=== PATIENT | female | born 1965 | race American Indian/Alaskan Native ===

== ENCOUNTER 2016-07-25 23:28 | Inpatient (IN) | payer MEDICARE, MEDICAID ==
[2016-07-25 23:32] VITALS: BMI 27.9
--- NOTE | 2016-07-25 23:49 | ED PDOC ---
Arrival/HPI - General Time Seen by Provider: 07/25/16 23:35 Historian: Patient - History of Present Illness Narrative History of Present Illness (Text): 07/25/16 23:53 Shadi Anderson is a 51 year old female, with a history of paraplegia, GERD, cellulitis, anemia and depression, presents to the emergency department from [facility] complaining of right flank pain. Patient was sent to ED for further evaluation after ultrasound showed renal calculi. Denies fever, chills, chest pain, SOB, nausea, vomiting, diarrhea, or any other complaints at this time. Time/Duration: < week Symptom Onset: Sudden Symptom Course: Unchanged Severity Level: Mild Activities at Onset: Light Past Medical History - Provider Review Nursing Documentation Reviewed: Yes Family/Social History - Physician Review Nursing Documentation Reviewed: Yes Family/Social History: No Known Family HX Allergies/Home Meds Allergies/Adverse Reactions: Allergies No Known Allergies Allergy (Verified 07/26/16 11:05) Home Medications: Home Meds Medication Instructions Recorded Confirmed Acetaminophen/Oxycodone Hydr 1 tab PO Q6H 07/26/16 07/26/16 [Percocet 10/325 mg Tab] Amitriptyline [Elavil] 1 tab PO HS 07/26/16 07/26/16 Baclofen [Lioresal] 1 tab PO Q12H 07/26/16 07/26/16 Cyclobenzaprine [Flexeril] 1 tab PO DAILY 07/26/16 07/26/16 DULoxetine [Cymbalta] 1 cap PO BID 07/26/16 07/26/16 Divalproex [Depakote Sprinkles] 1 tab PO BID 07/26/16 07/26/16 Docusate [Colace] 2 cap PO HS 07/26/16 07/26/16 Enoxaparin [Lovenox] 30 mg SC DAILY 07/26/16 07/26/16 Fentanyl [Duragesic Patch] 75 mcg TD Q72H 07/26/16 07/26/16 Ferrous Sulfate [Feosol] 1 tab PO DAILY 07/26/16 07/26/16 Furosemide [Lasix] 1 tab PO DAILY 07/26/16 07/26/16 Lactulose [Constulose] 30 ml PO BID 07/26/16 07/26/16 Multivitamin [One Daily] 1 tab PO DAILY 07/26/16 07/26/16 Omeprazole [Omeprazole] 1 cap PO DAILY 07/26/16 07/26/16 Potassium Chloride [Klor-Con M10] 1 tab PO DAILY 07/26/16 07/26/16 Sennosides [Senna] 2 tab PO HS 07/26/16 07/26/16 Review of Systems - Physician Review All systems were reviewed & negative as marked: Yes - Review of Systems Constitutional: Normal. absent: Fatigue, Fevers Cardiovascular: Normal. absent: Chest Pain Gastrointestinal: Normal. absent: Abdominal Pain, Diarrhea, Nausea, Vomiting Musculoskeletal: Back Pain (right flank pain ) Neurological: Normal. absent: Headache, Dizziness Psychiatric: Normal Physical Exam Vital Signs Reviewed: Yes Vital Signs Temp Pulse Resp BP Pulse Ox 07/26/16 05:33 92 H 18 104/68 96 07/26/16 03:30 81 19 89/57 L 96 07/25/16 23:41 98.8 F 103 H 18 115/69 100 Temperature: Afebrile Blood Pressure: Normal Pulse: Regular Respiratory Rate: Normal Appearance: Positive for: Non-Toxic Pain Distress: None Mental Status: Positive for: Alert and Oriented X 3 - Systems Exam Head: Present: Atraumatic, Normocephalic Pupils: Present: PERRL Extroacular Muscles: Present: EOMI Conjunctiva: Present: Normal Respiratory/Chest: Present: Clear to Auscultation, Good Air Exchange. No: Respiratory Distress, Accessory Muscle Use Cardiovascular: Present: Regular Rate and Rhythm, Normal S1, S2. No: Murmurs Abdomen: Present: Normal Bowel Sounds. No: Tenderness, Distention, Peritoneal Signs Back: Present: CVA Tenderness (right CVA tenderness ) Neurological: Present: GCS=15, CN II-XII Intact, Speech Normal Skin: Present: Warm, Dry, Normal Color. No: Rashes Psychiatric: Present: Alert, Oriented x 3, Normal Insight, Normal Concentration Medical Decision Making ED Course and Treatment: 07/25/16 23:57 Impression: A 51 year old female who presents to the ed for evaluation of right flank pain. Plan: -- CT abdomen pelvis -- labs -- Cefepime -- Morphine -- Blood culture -- Urine culture -- Urinalysis Progress Notes: 07/26/16 03:56 CT abdomen pelvis results reviewed: IMPRESSION: - Extracaval positioning of portions of the IVC filter. Several of the struts of the filter extend beyond the confines of the IVC lumen, some located within the duodenum. No evidence of associated IVC rupture of duodenal perforation. - Moderate to severe right hydroureteronephrosis, as well as right perinephric and periureteric stranding, cause not identified, with a right ureteral stent in place. Findings could be secondary to a right-sided urinary tract infection, stent dysfunction, or a recently passed stone. - Findings suspicious for stercoral proctitis. 07/26/16 04:44 Case discussed with who accepts patient under hospitalist service. - Lab Interpretations Microbiology Results: Microbiology Results 07/26/16 02:20 Urine,Clean Catch Urine Culture - Preliminary Gram Negative [facility] Lab Results: 07/26/16 00:15 07/26/16 00:15 Lab Results 07/26/16 02:20: Urine Color Yellow, Urine Appearance Turbid, Urine pH 6.5, Ur Specific Ambler 1.025, Urine Protein 100 H, Urine Glucose (UA) Negative, Urine Ketones Negative, Urine Blood Large H, Urine Nitrate Positive H, Urine Bilirubin Negative, Urine Urobilinogen 0.2, Ur Leukocyte Esterase Moderate H, Urine RBC 1 - 3, Urine WBC 20 - 25, Ur Epithelial Cells 0 - 2, Urine Bacteria Many 07/26/16 00:15: WBC 8.4, RBC 4.12, Hgb 12.0, Hct 36.1, MCV 87.6, MCH 29.1, MCHC 33.2, RDW 13.3, Plt Count 477 H, MPV 8.4, Gran % 58.9, Lymph % (Auto) 26.0, [place] % (Auto) 13.9 H, Eos % (Auto) 0.8 L, Baso % (Auto) 0.4, Gran # 4.92, Lymph # 2.2, [place] # 1.2 H, Eos # 0.1, Baso # 0.03, Sodium 136, Potassium 4.0, Chloride 99, Carbon Dioxide 27, Anion Gap 14, BUN 23 H, Creatinine 1.3, Est GFR ( Amer) 52, Est GFR (Non-Af Amer) 43, Random Glucose 101, Calcium 9.5, Total Bilirubin 0.6, AST 24, ALT 8, Alkaline Phosphatase 156 H, Total Protein 9.9 H, Albumin 3.7, Globulin 6.3, Albumin/Globulin Ratio 0.6 L I have reviewed the lab results: Yes - RAD Interpretation Narrative RAD Interpretations (Text): EXAM: CT Abdomen and Pelvis Without Intravenous Contrast. FINDINGS: LIMITATIONS: Exam is limited by artifact related to the patient's body habitus and streak artifact from the patient's left arm. LOWER THORAX: Chronic-appearing bronchiectasis and consolidation in the left lung base. ABDOMEN: LIVER: No acute abnormality of the liver identified. GALLBLADDER AND BILE DUCTS: No CT evidence of acute cholecystitis. No evidence of significant biliary ductal dilatation. PANCREAS: No CT evidence of acute pancreatitis. SPLEEN: No acute abnormality of the spleen identified. ADRENALS: No acute abnormality of the adrenal glands identified. KIDNEYS AND URETERS: Right ureteral stent in place. This does not appear to be malpositioned. Its proximal tip is located in the renal pelvis, and its distal tip is located in the bladder. There is moderate to severe right hydroureteronephrosis. The hydroureter does involve the distal right ureter. Right renal enlargement and diffuse right perinephric and periureteric stranding are also noted. No causative obstructing stones are seen. Large 2 cm stone in the right renal pelvis, abutting the proximal tip of the stent. Multiple additional tiny, nonobstructing right renal stones. Marked scarring of the left kidney. STOMACH AND BOWEL: Rectum is stool-filled and is mildly and dilated. Its wall is thickened. There is infiltration of the perirectal fat. There is a small amount of nearby free fluid, in the presacral region. Findings are suspicious for stercoral proctitis. Retained stool also seen throughout the remainder of the colon. No definite transition point seen in the colon. No acute abnormality of the stomach identified. No evidence of small bowel obstruction. APPENDIX: Appendix is seen, and is within normal limits in appearance. PELVIS: BLADDER: See above. No large bladder calculi visualized. REPRODUCTIVE:No acute abnormality of the reproductive organs is seen. No acute abnormality of the uterus identified. No evidence of large adnexal masses. ABDOMEN and PELVIS: INTRAPERITONEAL SPACE: No evidence of free air or significant free fluid. BONES/JOINTS: Post operative changes involving the lower sacrum. It appears that the lower sacrum has been surgically resected. Metallic hardware in the left hip. There is associated streak artifact, which obscures adjacent structures. Bony structures appear demineralized. Mild chronic compression fracture is noted at L1. SOFT TISSUES: Diffuse muscular atrophy is noted in the pelvis. VASCULATURE: IVC filter in place. This is partially located outside of the IVC lumen. Several of the struts of the filter are at located outside of the IVC lumen, some extending into the duodenum. There is no evidence of associated IVC rupture or duodenal perforation. No retroperitoneal hemorrhage or free air. LYMPH NODES: No evidence of diffuse lymphadenopathy. IMPRESSION: - Extracaval positioning of portions of the IVC filter. Several of the struts of the filter extend beyond the confines of the IVC lumen, some located within the duodenum. No evidence of associated IVC rupture of duodenal perforation. - Moderate to severe right hydroureteronephrosis, as well as right perinephric and periureteric stranding, cause not identified, with a right ureteral stent in place. Findings could be secondary to a right-sided urinary tract infection, stent dysfunction, or a recently passed stone. - Findings suspicious for stercoral proctitis. - See above for remaining findings. Radiology Orders: 07/25/16 23:49 ABD & PELVIS W/O PO OR IV CONT [CT] Stat Quality Technician [employer]: Radiologist - Medication Orders Current Medication Orders: Acetaminophen (Tylenol 325mg Tab) 650 mg PO Q4H PRN PRN Reason: Fever >100.4 F Last Admin: 07/27/16 18:08 Dose: 650 MG MAR Pain/Vitals Document 07/27/16 18:08 [facility] (Rec: 07/27/16 18:08 [facility] [id number]) Pain Reassessment Is This A Pain ReAssessment? No Presence of Pain Presence of Pain Yes Pain Scale Used Pain Scale Used Numeric Vitals Temperature (97.6 F-99.6 F) 99.4 F Temperature Source Oral Amitriptyline HCl (Elavil) 25 mg PO HS [facility] Last Admin: 07/26/16 21:58 Dose: 25 MG Ascorbic Acid (Vitamin C 500 Mg Tab) 500 mg PO DAILY EMILY Baclofen (Lioresal) 10 mg PO Q12H [facility] Last Admin: 07/27/16 08:00 Dose: Not Given Non-Admin Reason: NPO Cyclobenzaprine HCl (Flexeril) 10 mg PO DAILY [facility] Last Admin: 07/26/16 09:02 Dose: 10 MG Divalproex Sodium (Depakote Sprinkles) 125 mg PO BID [facility] PRN Reason: Protocol Last Admin: 07/27/16 18:08 Dose: 125 MG Behavioural Document 07/27/16 18:08 CLR (Rec: 07/27/16 18:08 CLR [id number]) Maintenance Maintenance Dose Yes Docusate Sodium (Colace) 100 mg PO HS [facility] Last Admin: 07/26/16 21:56 Dose: 100 MG Duloxetine HCl (Cymbalta) 60 mg PO BID [facility] Last Admin: 07/27/16 18:08 Dose: 60 MG Enoxaparin Sodium (Lovenox) 30 mg SC DAILY [facility] PRN Reason: Protocol Last Admin: 07/26/16 09:02 Dose: 30 MG Subcutaneous Administrations Document 07/26/16 09:02 RV (Rec: 07/26/16 09:02 RV [id number]) Injection Site MAR Injection Site Right Abdomen Charges for Administration # of Subcutaneous Administrations 1 Fentanyl (Duragesic) 1 patch TD Q72H [facility] Last Admin: 07/26/16 09:00 Dose: 1 PATCH Ferrous Sulfate (Feosol) 324 mg PO DAILY [facility] Last Admin: 07/26/16 09:02 Dose: 324 MG Furosemide (Lasix) 20 mg PO DAILY [facility] Last Admin: 07/26/16 09:02 Dose: 20 MG MAR Blood Pressure Document 07/26/16 09:02 RV (Rec: 07/26/16 09:02 RV [id number]) Blood Pressure Blood Pressure (100/60-150/90) 110/66 Cefepime HCl (Maxipime 1gm) 100 mls @ 100 mls/hr IVPB Q24H [facility] PRN Reason: Protocol Last Admin: 07/26/16 11:54 Dose: 100 MLS/HR eMAR Start Stop Document 07/26/16 11:54 RV (Rec: 07/26/16 11:55 RV [id number]) Intravenous Solution Start Date 07/26/16 Start Time 11:54 End Date 07/26/16 End time 12:54 Total Infusion Time 60 Sodium Chloride (Sodium Chloride 0.9%) 1,000 mls @ 100 mls/hr IV .Q10H [facility] Last Admin: 07/27/16 18:15 Dose: 100 MLS/HR eMAR Start Stop Document 03/15/17 18:15 CLR (Rec: 07/27/16 18:15 CLR [id number]) Intravenous Solution Start Date 07/27/16 Start Time 18:15 Lactulose (Enulose) 20 gm PO BID [facility] Last Admin: 07/27/16 18:11 Dose: Not Given Non-Admin Reason: Patient Refused Multivitamins (Thera Tab) 1 tab PO DAILY [facility] Last Admin: 07/26/16 09:02 Dose: 1 TAB Oxycodone/Acetaminophen (Percocet 10/325 Mg Tab) 1 tab PO Q6H [facility] Last Admin: 07/27/16 12:45 Dose: Pantoprazole Sodium (Protonix Ec Tab) 40 mg PO 0630 [facility] Last Admin: 07/27/16 05:53 Dose: Not Given Non-Admin Reason: NPO Potassium Chloride (Klor-Con 10) 10 meq PO DAILY [facility] Last Admin: 07/26/16 09:02 Dose: 10 MEQ Sennosides (Senokot Tab) 8.6 mg PO HS [facility] Last Admin: 07/26/16 21:57 Dose: 8.6 MG Sennosides (Senokot Tab) 8.6 mg PO DAILY [facility] Last Admin: 07/26/16 09:01 Dose: 8.6 MG Zinc Sulfate (Zinc Sulfate 220 Mg Cap) 220 mg PO DAILY [facility] Discontinued Medications Ceftriaxone Sodium (Rocephin) Confirm Administered Dose 1 gm .ROUTE .STK-MED ONE Stop: 07/27/16 09:01 Last Admin: 07/27/16 09:02 Dose: 1 gm Comments: ORM Administered Route: IVPB Fentanyl (Fentanyl) Confirm Administered Dose 100 mcg .ROUTE .STK-MED ONE Stop: 07/27/16 08:52 Fentanyl (Fentanyl) 25 mcg IV Q5M PRN PRN Reason: Pain, moderate (4-7) Stop: 07/27/16 09:47 Glycopyrrolate (Robinul) Confirm Administered Dose 0.2 mg .ROUTE .STK-MED ONE Stop: 07/27/16 08:54 Cefepime HCl (Maxipime 1gm) 100 mls @ 100 mls/hr IVPB STAT STA PRN Reason: Protocol Stop: 07/26/16 04:29 Last Admin: 07/26/16 03:57 Dose: 100 MLS/HR eMAR Start Stop Document 07/26/16 03:57 MR (Rec: 07/26/16 03:58 [id number]) Intravenous Solution Start Date 07/26/16 Start Time 03:57 End Date 07/26/16 End time 04:57 Total Infusion Time 60 Cefepime HCl (Maxipime 1gm) 100 mls @ 100 mls/hr IVPB Q24H EMILY PRN Reason: Protocol Last Admin: 07/26/16 06:33 Dose: Ceftriaxone Sodium (Rocephin 1 Gram Ivpb) 100 mls @ 100 mls/hr IVPB DAILY EMILY PRN Reason: Protocol Lactated Ringer's (Lactated Ringer's) 1,000 mls @ 75 mls/hr IV .[id number] EMILY Stop: 07/27/16 11:46 Last Admin: 07/27/16 12:45 Dose: Amikacin Sulfate 500 mg/ (Dextrose) 102 mls @ 204 mls/hr IVPB ONCE ONE PRN Reason: Protocol Stop: 07/27/16 18:59 Influenza Virus Vaccine (Fluvirin) 45 mcg IM .ONCE ONE Stop: 07/26/16 12:26 Iohexol (Omnipaque 240 (50 Ml)) Confirm Administered Dose 50 ml .ROUTE .STK-MED ONE Stop: 07/27/16 08:20 Last Admin: 07/27/16 09:18 Dose: 20 ML Lidocaine HCl (Xylocaine 2% (Uro-Jet)) Confirm Administered Dose 1 ea .ROUTE .STK-MED ONE Stop: 07/27/16 08:20 Metronidazole (Flagyl) 500 mg PO Q8 EMILY PRN Reason: Protocol Last Admin: 07/27/16 05:52 Dose: Not Given Non-Admin Reason: NPO Midazolam HCl (Versed Inj) Confirm Administered Dose 2 mg .ROUTE .STK-MED ONE Stop: 07/27/16 08:52 Morphine Sulfate (Morphine) 2 mg IVP STAT STA Stop: 07/26/16 01:45 Last Admin: 07/26/16 04:01 Dose: Not Given Non-Admin Reason: Patient Refused Non-Formulary Medication (Omeprazole [Omeprazole]) 1 cap PO DAILY EMILY Pneumococcal Polyvalent Vaccine (Pneumovax 23 Vaccine) 0.5 ml IM .ONCE ONE Stop: 07/26/16 12:26 - Scribe Statement The provider has reviewed the documentation as recorded by the Scribe Rich Noehuraman Provider Attestation: All medical record entries made by the Johnny were at my direction and personally dictated by me. I have reviewed the chart and agree that the record accurately reflects my personal performance of the history, physical exam, medical decision making, and the department course for this patient. I have also personally directed, reviewed, and agree with the discharge instructions and disposition. Disposition/Present on Arrival - Present on Arrival Any Indicators Present on Arrival: No - Disposition Have Diagnosis and Disposition been Completed?: Yes Diagnosis: Urolithiasis, Retained ureteral stent Disposition: HOSPITALIZED Disposition Time: 04:45 Condition: FAIR
[2016-07-26 00:24] LABS: ADD MANUAL DIFF? NO
[2016-07-26 00:27] LABS: BASO # 0.03 K/mm3 (0.0-2.0); BASO % 0.4 % (0.0-3.0); EOS # 0.1 (0.0-0.7); EOS % 0.8 % (1.5-5.0); GRAN # 4.92 (1.4-6.5); GRAN % 58.9 % (50.0-68.0); HEMATOCRIT 36.1 % (36.0-48.0); LYMPH # 2.2 (1.2-3.4); MEAN CELL VOLUME 87.6 fL (80.0-105.0); MEAN CORPUSCULAR HEMOGLOBIN 29.1 pg (25.0-35.0); MEAN CORPUSCULAR HGB CONC 33.2 g/dl (31.0-37.0); MEAN PLATELET VOLUME 8.4 fl (7.0-11.0); MONO # 1.2 (0.1-0.6); MONO % 13.9 % (1.0-6.0); PLATELET COUNT 477 10^3/uL (120.0-450.0); RED CELL DISTRIBUTION WIDTH 13.3 % (11.5-14.5); WHITE BLOOD COUNT 8.4 10^3/ul (4.5-11.0)
[2016-07-26 00:44] LABS: ALB/GLOB RATIO 0.6 (1.1-1.8); BILIRUBIN,TOTAL 0.6 mg/dL (0.2-1.3); CALCIUM 9.5 mg/dL (8.4-10.5); TOTAL PROTEIN 9.9 g/dL (5.8-8.3)
[2016-07-26] MEDS ORDERED: Morphine 2 mg/ml ISec IVP STA (01:44)
[2016-07-26 02:50] LABS: PH,URINE 6.5 (4.7-8.0); URINE BILIRUBIN NEGATIVE (NEGATIVE); URINE BLOOD LARGE (NEGATIVE); URINE COLOR YELLOW (YELLOW); URINE GLUCOSE (UA) NEGATIVE (NEGATIVE); URINE KETONE NEGATIVE (NEGATIVE); URINE LEUKOCYTE ESTERASE MODERATE Leu/uL (NEGATIVE); URINE PROTEIN 100 mg/dL (<30 mg/dL); URINE UROBILINOGEN 0.2 E.U./dL (<1 E.U./dL)
[2016-07-26 02:51] LABS: URINE APPEARANCE TURBID (CLEAR)
[2016-07-26 02:56] LABS: URINE BACTERIA MANY (NEG); URINE EPITHELIAL CELLS 0 - 2 /hpf (0-5); URINE WBC 20 - 25 /hpf (0-6)
[2016-07-26] MEDS ORDERED: Cefepime 1gm in NS 100ml 100 ML IVPB STA (03:30)
--- NOTE | 2016-07-26 03:47 | CT ---
EXAM: CT Abdomen and Pelvis Without Intravenous Contrast. CLINICAL HISTORY: 51 years old, female; Pain; Abdominal pain; Flank; Right; Additional info: Rt flank pain TECHNIQUE: Axial computed tomography images of the abdomen and pelvis without intravenous contrast. This CT exam was performed using one or more of the following dose reduction techniques: automated exposure control, adjustment of the mA and/or kV according to patient size, and/or use of iterative reconstruction technique. Coronal and sagittal reformatted images were created and reviewed. EXAM DATE/TIME: 07/25/2016 11:49 PM COMPARISON: No relevant prior studies available. FINDINGS: LIMITATIONS: Exam is limited by artifact related to the patient's body habitus and streak artifact from the patient's left arm. LOWER THORAX: Chronic-appearing bronchiectasis and consolidation in the left lung base. ABDOMEN: LIVER: No acute abnormality of the liver identified. GALLBLADDER AND BILE DUCTS: No CT evidence of acute cholecystitis. No evidence of significant biliary ductal dilatation. PANCREAS: No CT evidence of acute pancreatitis. SPLEEN: No acute abnormality of the spleen identified. ADRENALS: No acute abnormality of the adrenal glands identified. KIDNEYS AND URETERS: Right ureteral stent in place. This does not appear to be malpositioned. Its proximal tip is located in the renal pelvis, and its distal tip is located in the bladder. There is moderate to severe right hydroureteronephrosis. The hydroureter does involve the distal right ureter. Right renal enlargement and diffuse right perinephric and periureteric stranding are also noted. No causative obstructing stones are seen. Large 2 cm stone in the right renal pelvis, abutting the proximal tip of the stent. Multiple additional tiny, nonobstructing right renal stones. Marked scarring of the left kidney. STOMACH AND BOWEL: Rectum is stool-filled and is mildly and dilated. Its wall is thickened. There is infiltration of the perirectal fat. There is a small amount of nearby free fluid, in the presacral region. Findings are suspicious for stercoral proctitis. Retained stool also seen throughout the remainder of the colon. No definite transition point seen in the colon. No acute abnormality of the stomach identified. No evidence of small bowel obstruction. APPENDIX: Appendix is seen, and is within normal limits in appearance. PELVIS: BLADDER: See above. No large bladder calculi visualized. REPRODUCTIVE:No acute abnormality of the reproductive organs is seen. No acute abnormality of the uterus identified. No evidence of large adnexal masses. ABDOMEN and PELVIS: INTRAPERITONEAL SPACE: No evidence of free air or significant free fluid. BONES/JOINTS: Post operative changes involving the lower sacrum. It appears that the lower sacrum has been surgically resected. Metallic hardware in the left hip. There is associated streak artifact, which obscures adjacent structures. Bony structures appear demineralized. Mild chronic compression fracture is noted at L1. SOFT TISSUES: Diffuse muscular atrophy is noted in the pelvis. VASCULATURE: IVC filter in place. This is partially located outside of the IVC lumen. Several of the struts of the filter are at located outside of the IVC lumen, some extending into the duodenum. There is no evidence of associated IVC rupture or duodenal perforation. No retroperitoneal hemorrhage or free air. LYMPH NODES: No evidence of diffuse lymphadenopathy. IMPRESSION: - Extracaval positioning of portions of the IVC filter. Several of the struts of the filter extend beyond the confines of the IVC lumen, some located within the duodenum. No evidence of associated IVC rupture of duodenal perforation. - Moderate to severe right hydroureteronephrosis, as well as right perinephric and periureteric stranding, cause not identified, with a right ureteral stent in place. Findings could be secondary to a right-sided urinary tract infection, stent dysfunction, or a recently passed stone. - Findings suspicious for stercoral proctitis. - See above for remaining findings.
[2016-07-26] MEDS ORDERED: Cefepime 1gm in NS 100ml 100 ML IVPB SCH (06:15)
--- NOTE | 2016-07-26 07:47 | CP.PCM.HP ---
Addendum entered and electronically signed by Judson Qureshi DO 07/26/16 17: 19: Plan for cystoscopy with stent placement rai morning likely [address] Mark Vasquez. Pt NPO past midnight. Original Note: History of Present Illness - History of Present Illness History of Present Illness: CC: Right Flank pain HPI: This is a 51 yo AA F with PMH of paraplegia 2/[address] [place] [address] (2007), nephrolithiasis s/p right ureter stent (2013), GERD, cellulitis , anemia, and depression who presents with complaint of right flank pain. Per patient, she has had intermittent right flank pain for 3 years, which is when she was first diagnosed with renal stones. She had an ultrasound done of her kidneys at her residential, and was found to have a new 2cm stone and dilated right kidney, so she was sent to the hospital. She was also found to have urine suspicious for possible UTI on arrival. She reports intermittent fevers over the last 3-4 weeks, without acute worsening today. Denies shortness of breath, chest pain, nausea/emesis, or abdominal pain. PMH: As above PSH: Unspecified spinal surgery, left hip repair SHx: denies tobacco, alcohol, illicits/IVDA PMD: Dr. Helton Present on Admission - Present on Admission Any Indicators Present on Admission: No History of DVT/PE: No History of Uncontrolled Diabetes: No Urinary Catheter: No Review of Systems - Constitutional Constitutional: Fever (intermittent), Malaise. absent: Chills, Excessive Sweating - EENT Eyes: absent: Blurred Vision, Change in Vision, Loss of Peripheral Vision, Spots in Vision, Loss of Vision Ears: absent: Disequilibrium, Dizziness Nose/Mouth/Throat: absent: Dysphagia, Sore Throat - Cardiovascular Cardiovascular: absent: Chest Pain, Dyspnea, Pain Radiating to Arm/Neck/Jaw, Lightheadedness, Syncope - Respiratory Respiratory: absent: Cough, Dyspnea - Gastrointestinal Gastrointestinal: Constipation (chronic, due to paraplegic injury and chronic pain medications, on regular bowel regimen at residential). absent: Abdominal Pain, Diarrhea, Nausea, Vomiting - Genitourinary Genitourinary: Flank Pain (R flank, no radiation elsewhere), Hx Renal/Bladder Calculi (hx of renal calculi, right ureter stent placed 3 years prior). absent : Hematuria - Musculoskeletal Musculoskeletal: Numbness (paraplegic 2/2 fall from 3rd story in 2007). absent : Joint Swelling, Radiating Pain into Limb - Integumentary Integumentary: absent: Pruritus, Rash - Neurological Neurological: absent: Disequilibrium, Dizziness, Loss of Vision, Syncope, Vertigo, Other Visual Disturbances - Psychiatric Psychiatric: Anxiety, Depression - Endocrine Endocrine: absent: Fatigue, Palpitations Past Patient History - Infectious Disease Hx of Infectious Diseases: None - Past Social History Smoking Status: Unknown If Ever Smoked - HEMATOLOGICAL/ONCOLOGICAL Hx Anemia: Yes - INTEGUMENTARY Hx Cellulitis: Yes - MUSCULOSKELETAL/RHEUMATOLOGICAL Hx Osteomyelitis: Yes Other/Comment: Paraplegia - GASTROINTESTINAL Hx Gastroesophageal Reflux: Yes - PSYCHIATRIC Hx Depression: Yes Hx Substance Use: No - SURGICAL HISTORY Hx Surgeries: No Other/Comment: Back surgery - ANESTHESIA Hx Anesthesia: Yes Hx Anesthesia Reactions: No Hx Malignant Hyperthermia: No Meds Allergies/Adverse Reactions: Allergies Allergy/AdvReac Type Severity Reaction Status Date / Time No Known Allergies Allergy Verified 07/25/16 23:32 Physical Exam - Constitutional Appears: Non-toxic, No Acute Distress, Chronically Ill - Head Exam Head Exam: ATRAUMATIC, NORMAL INSPECTION, NORMOCEPHALIC - Eye Exam Eye Exam: EOMI, Normal appearance, PERRL. absent: Conjunctival injection, Scleral icterus Pupil Exam: PERRL. absent: Irregular, Unequal - ENT Exam ENT Exam: Mucous Membranes Moist. absent: Mucous Membranes Dry - Neck Exam Neck exam: Negative for: Lymphadenopathy, Tenderness, Thyromegaly - Respiratory Exam Respiratory Exam: Clear to Auscultation Bilateral, NORMAL BREATHING PATTERN. absent: Decreased Breath Sounds, Rales, Rhonchi, Wheezes - Cardiovascular Exam Cardiovascular Exam: REGULAR RHYTHM, RRR, +S1, +S2. absent: Bradycardia, Tachycardia, Irregular Rhythm, +S4 - GI/Abdominal Exam GI & Abdominal Exam: Normal Bowel Sounds, Soft. absent: Diminished Bowel Sounds , Firm, Hyperactive Bowel Sounds, Hypoactive Bowel Sounds, Rigid, Tenderness ( patient points to right flank area of tenderness, but no visible reaction on deep palpation of spot) - Extremities Exam Extremities exam: Negative for: pedal edema Additional comments: No lower extremity sensation - Neurological Exam Neurological exam: Alert - Psychiatric Exam Psychiatric exam: Anxious, Flat Affect - Skin Skin Exam: Dry, Intact, Normal Color, Warm Results - Vital Signs Recent Vital Signs: Last Vital Signs Temp 98.8 F 07/25/16 23:41 Pulse 92 H 07/26/16 05:33 Resp 18 07/26/16 05:33 BP 104/68 07/26/16 05:33 Pulse Ox 96 07/26/16 05:33 - Labs Result Diagrams: 07/26/16 00:15 07/26/16 00:15 Assessment & Plan - Assessment and Plan (Free Text) Assessment: This is a 51 yo AA F with PMH of paraplegia 2/2 fall from 3rd story [facility] ( 2007), nephrolithiasis s/p right ureter stent (2013), GERD, cellulitis, anemia, and depression who presents with complaint of right flank pain and recently discovered nephrolithiasis on US. She is being treated for nephrolithiasis and suspected UTI +/- possible pyelo. Plan: 1) Nephrolithiasis -Right 2 cm stone discovered on US at [facility], patient complains of persistent sent of mass on the right side -Prior R ureteral stent placed (3 years ago) -Urology consulted, appreciate any recs -Pain control with home percocet, IV fluids 2) Hydronephrosis -Pyelo vs 2/2 Nephrolithiasis -UA suspicious for UTI with Moderate leuk esterase, positive nitrates, and 20- 35 WBCs; UTI with hydronephrosis may be indicative of pyelo, will cover empirically with Cefepime and Flagyl -2cm nephrolithiasis on imaging, unlikely to spontaneously pass, may be causing hydronephrosis 2/2 obstructive process -Cr 1.2, no prior charting to establish baseline -Urology consulted, appreciate any recs 3) Hx Depression -continue home antidepressants 4) Hx GERD -Protonix 40mg daily 5) Paraplegia -longstanding, 2/2 fall from 3rd story in 2007 Dispo: Inpatient admission to Med/Surg for nephrolithiasis +/- possible pyelo, pending input from Urology FEN: Heart-healthy diet, IV NS 100cc/hr Access: Peripheral IV Consults: Urology Ppx: Protonix covers GI, Lovenox covers for DVT/PE Patient seen, discussed, and reviewed with attending, Dr. Bagley. - Date & Time Date: 07/26/16 Time: 07:30 Decision To Admit - Pt Status Changed To: Hospital Disposition Of: Inpatient Admission - Admit Certification Admit to Inpatient:: After my assessment, the patient will require hospitalization for at least two midnights. This is because of the severity of symptoms shown, intensity of services needed, and/or the medical risk in this patient being treated as an outpatient. - . Bed Request Type: Med/Surg
[2016-07-26] MEDS: Oxycodone/Acetaminophen 10/325 mg Tab PO SCH ×3 (08:57→21:57)
[2016-07-26] MEDS: Divalproex 125 mg EC Sprinkle Cap PO SCH ×3 (09:01→18:55)
[2016-07-26] MEDS: Multivitamin Therapeutic Tab PO SCH (09:02)
[2016-07-26] MEDS: Potassium Chloride 10 mEq ER Tab PO SCH (09:02)
[2016-07-26] MEDS: Enoxaparin 30 mg Syringe SC SCH (09:02)
[2016-07-26 09:24] LABS: ADD MANUAL DIFF? NO
[2016-07-26 09:29] LABS: BASO # 0.03 K/mm3 (0.0-2.0); BASO % 0.4 % (0.0-3.0); EOS # 0.1 (0.0-0.7); GRAN # 3.61 (1.4-6.5); GRAN % 53.7 % (50.0-68.0); HEMATOCRIT 33.3 % (36.0-48.0); LYMPH % 29.7 % (22.0-35.0); MEAN CELL VOLUME 87.2 fL (80.0-105.0); MEAN CORPUSCULAR HEMOGLOBIN 29.1 pg (25.0-35.0); MEAN CORPUSCULAR HGB CONC 33.3 g/dl (31.0-37.0); MEAN PLATELET VOLUME 8.3 fl (7.0-11.0); MONO % 15.2 % (1.0-6.0); PLATELET COUNT 468 10^3/uL (120.0-450.0); RED CELL DISTRIBUTION WIDTH 13.3 % (11.5-14.5); WHITE BLOOD COUNT 6.7 10^3/ul (4.5-11.0)
[2016-07-26 10:00] LABS: ALB/GLOB RATIO 0.6 (1.1-1.8); BILIRUBIN,TOTAL 0.7 mg/dL (0.2-1.3); CALCIUM 9.5 mg/dL (8.4-10.5); MAGNESIUM 2.1 mg/dL (1.7-2.2); PHOSPHOROUS 3.6 mg/dL (2.5-4.5); POTASSIUM 4.3 mmol/L (3.6-5.0); TOTAL PROTEIN 9.5 g/dL (5.8-8.3)
[2016-07-26] MEDS ORDERED: Divalproex 125 mg EC Sprinkle Cap PO SCH (10:00)
[2016-07-26] MEDS ORDERED: Non Formulary Medication (Omeprazole [Omeprazole] 1 CAP) PO SCH (10:00)
[2016-07-26] MEDS ORDERED: cefTRIAXone 1 gm 100 ML IVPB SCH (10:00)
[2016-07-26] MEDS: Cefepime 1gm in NS 100ml 100 ML IVPB SCH (11:54)
[2016-07-26] MEDS: Sodium Chloride 0.9% 1,000 ML IV SCH (11:55)
[2016-07-26] MEDS ORDERED: Influenza Vaccine 45 MCG/0.5 ml IM ONE (12:25)
[2016-07-26] MEDS ORDERED: Pneumococcal 23-Valent Vaccine IM ONE (12:25)
--- NOTE | 2016-07-26 13:19 | RAD ---
HISTORY: cough COMPARISON: No prior. TECHNIQUE: Chest PA and lateral FINDINGS: LUNGS: No active pulmonary disease. PLEURA: No significant pleural effusion identified. No pneumothorax apparent. CARDIOVASCULAR: Normal. OSSEOUS STRUCTURES: No significant abnormalities. Dennis rods identified, of limited assessment/no evidence of hardware failure. VISUALIZED UPPER ABDOMEN: Normal. OTHER FINDINGS: None. IMPRESSION: No active disease.
--- NOTE | 2016-07-26 13:48 | PCM.URO ---
Urology Progress Note - Objective Lab Results Last 24 Hours: Laboratory Results - last 24 hr 07/26/16 09:22 WBC 6.7 D RBC 3.82 Hgb 11.1 L Hct 33.3 L MCV 87.2 MCH 29.1 MCHC 33.3 RDW 13.3 Plt Count 468 H MPV 8.3 Gran % 53.7 Lymph % (Auto) 29.7 Dickenson % (Auto) 15.2 H Eos % (Auto) 1.0 L Baso % (Auto) 0.4 Gran # 3.61 Lymph # 2.0 Dickenson # 1.0 H Eos # 0.1 Baso # 0.03 Sodium 141 Potassium 4.3 Chloride 108 H Carbon Dioxide 25 Anion Gap 12 BUN 19 Creatinine 1.2 Est GFR ( Amer) 58 Est GFR (Non-Af Amer) 48 Random Glucose 85 Calcium 9.5 Phosphorus 3.6 Magnesium 2.1 Total Bilirubin 0.7 AST 23 ALT 6 L Alkaline Phosphatase 119 Total Protein 9.5 H Albumin 3.6 Globulin 5.9 Albumin/Globulin Ratio 0.6 L Intake & Output: Intake & Output 07/25/16 07/26/16 07/26/16 18:59 06:59 18:59 Weight 173 lb Other: Voiding Method Incontinent Vital Signs: Vital Signs - 24 hr 07/26/16 07/26/16 07/26/16 05:33 06:00 09:02 Temperature 97.8 F Pulse Rate 92 H 78 Respiratory 18 17 Rate Blood Pressure 104/68 110/67 110/66 O2 Sat by Pulse 96 98 Oximetry 07/26/16 11:43 Temperature 97.8 F Pulse Rate 78 Respiratory 17 Rate Blood Pressure 110/66 O2 Sat by Pulse Oximetry
--- NOTE | 2016-07-27 01:05 | CP.PCM.PCO ---
Physician Communication Note - Physician Communication Note Physician Communication Note: chart reviewed. Pyelonephritis? on Cefepime/ Flagyl. Consult done tomorrow
[2016-07-27] MEDS: Oxycodone/Acetaminophen 10/325 mg Tab PO SCH ×5 (05:52→20:53)
[2016-07-27] MEDS: Sodium Chloride 0.9% 1,000 ML IV SCH ×2 (05:53→18:15)
[2016-07-27] MEDS ORDERED: Pantoprazole 40 mg EC Tab PO SCH (06:30)
[2016-07-27] MEDS ORDERED: Iohexol 240 (50 ml) ONE (08:19)
[2016-07-27] MEDS ORDERED: Lidocaine 2% Jelly (Uro-Jet) ONE (08:19)
[2016-07-27 08:27] LABS: ADD MANUAL DIFF? NO
[2016-07-27 08:40] LABS: BASO # 0.03 K/mm3 (0.0-2.0); BASO % 0.5 % (0.0-3.0); EOS # 0.1 (0.0-0.7); EOS % 2.3 % (1.5-5.0); GRAN # 3.21 (1.4-6.5); GRAN % 56.3 % (50.0-68.0); HEMATOCRIT 33.2 % (36.0-48.0); LYMPH # 1.6 (1.2-3.4); LYMPH % 27.4 % (22.0-35.0); MEAN CELL VOLUME 87.6 fL (80.0-105.0); MEAN CORPUSCULAR HGB CONC 31.9 g/dl (31.0-37.0); MEAN PLATELET VOLUME 8.5 fl (7.0-11.0); MONO # 0.8 (0.1-0.6); MONO % 13.5 % (1.0-6.0); PLATELET COUNT 496 10^3/uL (120.0-450.0); RED CELL DISTRIBUTION WIDTH 13.5 % (11.5-14.5); WHITE BLOOD COUNT 5.7 10^3/ul (4.5-11.0)
[2016-07-27 08:43] LABS: ALB/GLOB RATIO 0.6 (1.1-1.8); ALKALINE PHOSPHATASE 106 U/L (38-133); ALT/SGPT 7 U/L (7-56); AST/SGOT 28 U/L (15-39); BILIRUBIN,TOTAL 0.6 mg/dL (0.2-1.3); BLOOD UREA NITROGEN 14 mg/dL (7-21); CALCIUM 9.1 mg/dL (8.4-10.5); CARBON DIOXIDE 26 mmol/L (21-33); CHLORIDE 107 mmol/L (98-107); GFR AFRICAN-AMERICAN > 60; GLUCOSE,RANDOM 95 mg/dL (70-110); PHOSPHOROUS 3.3 mg/dL (2.5-4.5); POTASSIUM 4.1 mmol/L (3.6-5.0); SODIUM 140 mmol/L (132-148); TOTAL PROTEIN 9.1 g/dL (5.8-8.3)
[2016-07-27] MEDS ORDERED: Midazolam 2 MG/2 ML VIAL ONE (08:51)
[2016-07-27] MEDS ORDERED: cefTRIAXone (Rocephin) 1 gm Inj ONE (09:00)
--- NOTE | 2016-07-27 09:34 | CP.PCM.PCO ---
Physician Communication Note - Physician Communication Note Physician Communication Note: pt was in OR for stent placement, will f/u tomorrow, no acute issues, no SI
[2016-07-27] MEDS ORDERED: Lactated Ringer's 1,000 ML IV SCH (09:45)
--- NOTE | 2016-07-27 11:31 | RAD ---
PROCEDURE: Retrograde pyelogram HISTORY: R/O STONES COMPARISON: TECHNIQUE: Fluoroscopy was provided in the operating room. Twelve images were submitted FINDINGS: The initial images show a ureteral stent in place and a large stone in the renal pelvis. Subsequent images show placement of a wire alongside the stent extending into the renal pelvis. There is placement of a 2nd stent. IMPRESSION: As above
--- NOTE | 2016-07-27 12:53 | CP.PCM.PN ---
<Judson Qureshi - Last Filed: 07/27/16 14:43> Subjective - Date & Time of Evaluation Date of Evaluation: 07/27/16 Time of Evaluation: 11:42 - Subjective Subjective: Pt seen and examined. Pt is day 0 s/p right ureteral stent placement. Pt reports fevers, chills, and pain in her right flank. Pt also reports nausea. Pt denies chest pain and shortness of breath. Objective - Vital Signs/Intake and Output Vital Signs (last 24 hours): Temp Pulse Resp BP Pulse Ox 101.6 F H 60 20 145/87 100 07/27/16 12:37 07/27/16 10:15 07/27/16 10:15 07/27/16 10:15 07/27/16 10:15 Intake and Output: 07/27/16 07/27/16 06:59 18:59 Intake Total 780 0 Output Total 1 Balance 779 0 - Medications Medications: Current Medications Acetaminophen (Tylenol 325mg Tab) 650 mg PO Q4H PRN PRN Reason: Fever >100.4 F Last Admin: 07/27/16 12:37 Dose: 650 mg Amitriptyline HCl (Elavil) 25 mg PO HS [facility] Last Admin: 07/26/16 21:58 Dose: 25 mg Ascorbic Acid (Vitamin C 500 Mg Tab) 500 mg PO DAILY [facility] Baclofen (Lioresal) 10 mg PO Q12H [facility] Last Admin: 07/27/16 08:00 Dose: Not Given Cyclobenzaprine HCl (Flexeril) 10 mg PO DAILY [facility] Last Admin: 07/26/16 09:02 Dose: 10 mg Divalproex Sodium (Depakote Sprinkles) 125 mg PO BID [facility] PRN Reason: Protocol Last Admin: 07/26/16 18:55 Dose: Not Given Docusate Sodium (Colace) 100 mg PO HS [facility] Last Admin: 07/26/16 21:56 Dose: 100 mg Duloxetine HCl (Cymbalta) 60 mg PO BID [facility] Last Admin: 07/26/16 18:49 Dose: 60 mg Enoxaparin Sodium (Lovenox) 30 mg SC DAILY [facility] PRN Reason: Protocol Last Admin: 07/26/16 09:02 Dose: 30 mg Fentanyl (Duragesic) 1 patch TD Q72H [facility] Last Admin: 07/26/16 09:00 Dose: 1 patch Ferrous Sulfate (Feosol) 324 mg PO DAILY [facility] Last Admin: 07/26/16 09:02 Dose: 324 mg Furosemide (Lasix) 20 mg PO DAILY [facility] Last Admin: 07/26/16 09:02 Dose: 20 mg Cefepime HCl (Maxipime 1gm) 100 mls @ 100 mls/hr IVPB Q24H [facility] PRN Reason: Protocol Last Admin: 07/26/16 11:54 Dose: 100 mls/hr Sodium Chloride (Sodium Chloride 0.9%) 1,000 mls @ 100 mls/hr IV .Q10H [facility] Last Admin: 07/27/16 05:53 Dose: 100 mls/hr Lactulose (Enulose) 20 gm PO BID [facility] Last Admin: 07/26/16 18:49 Dose: 20 gm Metronidazole (Flagyl) 500 mg PO Q8 [facility] PRN Reason: Protocol Last Admin: 07/27/16 05:52 Dose: Not Given Multivitamins (Thera Tab) 1 tab PO DAILY [facility] Last Admin: 07/26/16 09:02 Dose: 1 tab Oxycodone/Acetaminophen (Percocet 10/325 Mg Tab) 1 tab PO Q6H [facility] Last Admin: 07/27/16 12:37 Dose: 1 tab Pantoprazole Sodium (Protonix Ec Tab) 40 mg PO 0630 [facility] Last Admin: 07/27/16 05:53 Dose: Not Given Potassium Chloride (Klor-Con 10) 10 meq PO DAILY [facility] Last Admin: 07/26/16 09:02 Dose: 10 meq Sennosides (Senokot Tab) 8.6 mg PO HS [facility] Last Admin: 07/26/16 21:57 Dose: 8.6 mg Sennosides (Senokot Tab) 8.6 mg PO DAILY [facility] Last Admin: 07/26/16 09:01 Dose: 8.6 mg Zinc Sulfate (Zinc Sulfate 220 Mg Cap) 220 mg PO DAILY [facility] - Labs Labs: 07/27/16 08:00 07/27/16 08:00 - Constitutional Appears: No Acute Distress - Head Exam Head Exam: ATRAUMATIC, NORMOCEPHALIC - Eye Exam Eye Exam: EOMI, PERRL - ENT Exam ENT Exam: Mucous Membranes Moist. absent: Mucous Membranes Dry - Respiratory Exam Respiratory Exam: Clear to Ausculation Bilateral - Cardiovascular Exam Cardiovascular Exam: +S1, +S2. absent: Gallop, Rubs, Murmur - GI/Abdominal Exam GI & Abdominal Exam: Soft, Tenderness, Normal Bowel Sounds. absent: Distended, Rigid - Extremities Exam Extremities Exam: absent: Full ROM - Back Exam Additional comments: sacral ulcer - Neurological Exam Neurological Exam: Alert, Awake, Oriented x3 - Psychiatric Exam Psychiatric exam: Normal Mood - Skin Skin Exam: Normal Color, Warm Assessment and Plan - Assessment and Plan (Free Text) Assessment: Pyelonephritis and hydronephrosis secondary to nephrolithiasis: Abd/Pelvis CT - moderate to severe right hydrouteronephrosis, right perinephric and periuretic stranding; large 2 cm stone in right renal pelvis; stercoral proctitis (please see full report) CXR - no active disease Urology, Dr. Vasquez, consulted. Help appreciated Day 0 s/p cystoscopy and right ureteral stent placement and with Dr. Vasquez T - 101.6 post-op Urine cultures positive for gram negative rods Infectious Disease, Dr. Pepper, consulted. Help appreciated. Maxipime 1 gm q24h Flagyl discontinued Follow up urology and ID recommendations Tylenol prn for fever Percocet prn for pain NS 100 cc/hr Sacral Ulcer: Wound care consulted, help appreciated. Zinc Vitamin C Hx of Depression: Elavil 25 mg po hs Cymbalta 60 mg po bid Back pain/Muscle Spasms: Flexeril 10 mg po qd Fentanyl patch Baclofen Peripheral Edema Lasix 20 mgpo qd Anemia Feosol Prophylactic Measures: GI: protonix 40 mg po qd DVT: Lovenox 30 mg sc qd Sennosides, colace for constipation Multivitamins Lactulose <Franklin Uriostegui B - Last Filed: 07/27/16 18:07> Objective - Vital Signs/Intake and Output Vital Signs (last 24 hours): Temp Pulse Resp BP Pulse Ox 98.9 F 60 20 145/87 100 07/27/16 15:30 07/27/16 10:15 07/27/16 10:15 07/27/16 10:15 07/27/16 10:15 Intake and Output: 07/27/16 07/27/16 06:59 18:59 Intake Total 780 480 Output Total 1 Balance 779 480 - Medications Medications: Current Medications Acetaminophen (Tylenol 325mg Tab) 650 mg PO Q4H PRN PRN Reason: Fever >100.4 F Last Admin: 07/27/16 12:37 Dose: 650 mg Amitriptyline HCl (Elavil) 25 mg PO HS [facility] Last Admin: 07/26/16 21:58 Dose: 25 mg Ascorbic Acid (Vitamin C 500 Mg Tab) 500 mg PO DAILY [facility] Baclofen (Lioresal) 10 mg PO Q12H [facility] Last Admin: 07/27/16 08:00 Dose: Not Given Cyclobenzaprine HCl (Flexeril) 10 mg PO DAILY [facility] Last Admin: 07/26/16 09:02 Dose: 10 mg Divalproex Sodium (Depakote Sprinkles) 125 mg PO BID [facility] PRN Reason: Protocol Last Admin: 07/26/16 18:55 Dose: Not Given Docusate Sodium (Colace) 100 mg PO HS [facility] Last Admin: 07/26/16 21:56 Dose: 100 mg Duloxetine HCl (Cymbalta) 60 mg PO BID [facility] Last Admin: 07/26/16 18:49 Dose: 60 mg Enoxaparin Sodium (Lovenox) 30 mg SC DAILY [facility] PRN Reason: Protocol Last Admin: 07/26/16 09:02 Dose: 30 mg Fentanyl (Duragesic) 1 patch TD Q72H [facility] Last Admin: 07/26/16 09:00 Dose: 1 patch Ferrous Sulfate (Feosol) 324 mg PO DAILY [facility] Last Admin: 07/26/16 09:02 Dose: 324 mg Furosemide (Lasix) 20 mg PO DAILY [facility] Last Admin: 07/26/16 09:02 Dose: 20 mg Cefepime HCl (Maxipime 1gm) 100 mls @ 100 mls/hr IVPB Q24H [facility] PRN Reason: Protocol Last Admin: 07/26/16 11:54 Dose: 100 mls/hr Sodium Chloride (Sodium Chloride 0.9%) 1,000 mls @ 100 mls/hr IV .Q10H [facility] Last Admin: 07/27/16 05:53 Dose: 100 mls/hr Lactulose (Enulose) 20 gm PO BID [facility] Last Admin: 07/26/16 18:49 Dose: 20 gm Multivitamins (Thera Tab) 1 tab PO DAILY [facility] Last Admin: 07/26/16 09:02 Dose: 1 tab Oxycodone/Acetaminophen (Percocet 10/325 Mg Tab) 1 tab PO Q6H [facility] Last Admin: 07/27/16 12:45 Dose: Not Given Pantoprazole Sodium (Protonix Ec Tab) 40 mg PO 0630 [facility] Last Admin: 07/27/16 05:53 Dose: Not Given Potassium Chloride (Klor-Con 10) 10 meq PO DAILY [facility] Last Admin: 07/26/16 09:02 Dose: 10 meq Sennosides (Senokot Tab) 8.6 mg PO HS [facility] Last Admin: 07/26/16 21:57 Dose: 8.6 mg Sennosides (Senokot Tab) 8.6 mg PO DAILY [facility] Last Admin: 07/26/16 09:01 Dose: 8.6 mg Zinc Sulfate (Zinc Sulfate 220 Mg Cap) 220 mg PO DAILY [facility] - Labs Labs: 07/27/16 08:00 07/27/16 08:00 Attending/Attestation - Attestation I have personally seen and examined this patient.: Yes I have fully participated in the care of the patient.: Yes I have reviewed all pertinent clinical information, including history, physical exam and plan: Yes Notes (Text): I have seen and examined patient at bedside with the resident. This is 51 year old fpc female with history of paraplegia secondary to fall from 3rd story balcony, anemia, peripheral edema, sacral ulcers, kidney stone s/p ureteral stent who got admitted for evaluation of right sided flank pain and found to have acute right sided pyelonephritis and large 2cm stone. Urology consult appreciated. Patient underwent cuystoscopy and right ureteral stent today. Complains of pain post procedure. Wound care consult pending. Added vitamin C, Zinc and multivitamins. Upon discharge patient will follow up with PMD of choice. Dr Franklin Uriostegui.
[2016-07-27] MEDS: Divalproex 125 mg EC Sprinkle Cap PO SCH (18:08)
--- NOTE | 2016-07-27 18:23 | CP.PCM.CON ---
History of Present Illness - History of Present Illness History of Present Illness: Infectious Disease Consultation: July 27, 2016 51 yo AA female sent to [facility] [place] for new 2cm stone in the right kidney with dilatation of the right kidney. The patient reports fevers over the past few weeks. The patient was found to have a positive urine culture. Gram negative rods growing in the urine. Patient is awake and alert. The patient was seen by Dr. Vasquez who removed the old stent (supposedly placed 3 years ago) in the right kidney and new one was placed. The patient is still having fevers and is a long time resident of [facility]. Currently on Cefepime for antibiotic coverage. PMHx: paraplegia 2/2 fall from 3rd story balcony (2007), nephrolithiasis s/p right ureter stent (2013), GERD, cellulitis, anemia, and depression PSHx: Spinal surgery, left hip repair Allergies: NKDA Social Hx: No tobacco, EtOH, or illicit drug use Active Medications Acetaminophen (Tylenol 325mg Tab) 650 mg PO Q4H PRN PRN Reason: Fever >100.4 F Last Admin: 07/27/16 18:08 Dose: 650 mg Amitriptyline HCl (Elavil) 25 mg PO HS [facility] Last Admin: 07/26/16 21:58 Dose: 25 mg Ascorbic Acid (Vitamin C 500 Mg Tab) 500 mg PO DAILY [facility] Baclofen (Lioresal) 10 mg PO Q12H [facility] Last Admin: 07/27/16 08:00 Dose: Not Given Cyclobenzaprine HCl (Flexeril) 10 mg PO DAILY [facility] Last Admin: 07/26/16 09:02 Dose: 10 mg Divalproex Sodium (Depakote Sprinkles) 125 mg PO BID [facility] PRN Reason: Protocol Last Admin: 07/27/16 18:08 Dose: 125 mg Docusate Sodium (Colace) 100 mg PO HS [facility] Last Admin: 07/26/16 21:56 Dose: 100 mg Duloxetine HCl (Cymbalta) 60 mg PO BID [facility] Last Admin: 07/27/16 18:08 Dose: 60 mg Enoxaparin Sodium (Lovenox) 30 mg SC DAILY [facility] PRN Reason: Protocol Last Admin: 07/26/16 09:02 Dose: 30 mg Fentanyl (Duragesic) 1 patch TD Q72H [facility] Last Admin: 07/26/16 09:00 Dose: 1 patch Ferrous Sulfate (Feosol) 324 mg PO DAILY [facility] Last Admin: 07/26/16 09:02 Dose: 324 mg Furosemide (Lasix) 20 mg PO DAILY [facility] Last Admin: 07/26/16 09:02 Dose: 20 mg Cefepime HCl (Maxipime 1gm) 100 mls @ 100 mls/hr IVPB Q24H [facility] PRN Reason: Protocol Last Admin: 07/26/16 11:54 Dose: 100 mls/hr Sodium Chloride (Sodium Chloride 0.9%) 1,000 mls @ 100 mls/hr IV .Q10H [facility] Last Admin: 07/27/16 05:53 Dose: 100 mls/hr Lactulose (Enulose) 20 gm PO BID [facility] Last Admin: 07/27/16 18:11 Dose: Not Given Multivitamins (Thera Tab) 1 tab PO DAILY [facility] Last Admin: 07/26/16 09:02 Dose: 1 tab Oxycodone/Acetaminophen (Percocet 10/325 Mg Tab) 1 tab PO Q6H [facility] Last Admin: 07/27/16 12:45 Dose: Not Given Pantoprazole Sodium (Protonix Ec Tab) 40 mg PO 0630 [facility] Last Admin: 07/27/16 05:53 Dose: Not Given Potassium Chloride (Klor-Con 10) 10 meq PO DAILY [facility] Last Admin: 07/26/16 09:02 Dose: 10 meq Sennosides (Senokot Tab) 8.6 mg PO HS [facility] Last Admin: 07/26/16 21:57 Dose: 8.6 mg Sennosides (Senokot Tab) 8.6 mg PO DAILY [facility] Last Admin: 07/26/16 09:01 Dose: 8.6 mg Zinc Sulfate (Zinc Sulfate 220 Mg Cap) 220 mg PO DAILY [facility] Family Hx: none given ROS: Patient with fevers, chills, right flank pain. NO cough, nausea, vomiting, diarrhea, headaches, dizziness, chest pain, abdominal pain, melena, hematuria, hematemesis, hematochezia, depression, anxiety. Past Patient History - Infectious Disease Hx of Infectious Diseases: None - Past Social History Smoking Status: Current Some Days Smoker - CARDIAC Hx Cardiac Disorders: No - PULMONARY Hx Respiratory Disorders: Yes (SMOKES CIGARETTES) - NEUROLOGICAL Hx Neurological Disorder: Yes (PARAPHLEGIA-FELL FR 3RD FLOOR [place]) - RENAL Hx Chronic Kidney Disease: Yes Hx Kidney Stones: Yes Hx Pyelonephritis: Yes (07-26-16 NEPHROLITHIASIS,RIGHT URETER,RIGHT URETERAL STENT) - ENDOCRINE/METABOLIC Hx Endocrine Disorders: No - HEMATOLOGICAL/ONCOLOGICAL Hx Blood Disorders: Yes Hx Anemia: Yes - INTEGUMENTARY Hx Dermatological Problems: Yes Other/Comment: SACRAL PRESSURE ULCER STAGE 4. 2 OPEN ULCERS SACRAL AREA. MEASURES ALL TOGETHER 9 X 14 CM. WITH INDURATION AT 2 O'CLOCK OF 4.5 DEEP.MID DEPTH IS 2 CM. LEFT LOWER BUTTOCK WITH A PRESSURE ULCER STAGE 4 ALSO WITH INDURATION OF 1.5. MEASURES 5.5 CM.CLEAN RED MINIMAL SEROUSANGUINEOUS DRAINAGE. - MUSCULOSKELETAL/RHEUMATOLOGICAL Hx Musculoskeletal Disorders: Yes Hx Falls: Yes Hx Osteomyelitis: Yes Other/Comment: Paraphlegia - GASTROINTESTINAL Hx Gastrointestinal Disorders: Yes Hx Gastroesophageal Reflux: Yes - GENITOURINARY/GYNECOLOGICAL Hx Genitourinary Disorders: Yes Hx Incontinence: Yes Hx Sexually Transmitted Disorders: Yes - PSYCHIATRIC Hx Depression: Yes Hx Substance Use: No - SURGICAL HISTORY Hx Surgeries: Yes - ANESTHESIA Hx Anesthesia Reactions: No Hx Malignant Hyperthermia: No Meds Allergies/Adverse Reactions: Allergies Allergy/AdvReac Type Severity Reaction Status Date / Time No Known Allergies Allergy Verified 07/26/16 11:05 - Medications Medications: Current Medications Acetaminophen (Tylenol 325mg Tab) 650 mg PO Q4H PRN PRN Reason: Fever >100.4 F Last Admin: 07/27/16 12:37 Dose: 650 mg Amitriptyline HCl (Elavil) 25 mg PO HS [facility] Last Admin: 07/26/16 21:58 Dose: 25 mg Ascorbic Acid (Vitamin C 500 Mg Tab) 500 mg PO DAILY [facility] Baclofen (Lioresal) 10 mg PO Q12H [facility] Last Admin: 07/27/16 08:00 Dose: Not Given Cyclobenzaprine HCl (Flexeril) 10 mg PO DAILY [facility] Last Admin: 07/26/16 09:02 Dose: 10 mg Divalproex Sodium (Depakote Sprinkles) 125 mg PO BID [facility] PRN Reason: Protocol Last Admin: 07/26/16 18:55 Dose: Not Given Docusate Sodium (Colace) 100 mg PO [facility] Last Admin: 07/26/16 21:56 Dose: 100 mg Duloxetine HCl (Cymbalta) 60 mg PO BID [facility] Last Admin: 07/26/16 18:49 Dose: 60 mg Enoxaparin Sodium (Lovenox) 30 mg SC DAILY [facility] PRN Reason: Protocol Last Admin: 07/26/16 09:02 Dose: 30 mg Fentanyl (Duragesic) 1 patch TD Q72H [facility] Last Admin: 07/26/16 09:00 Dose: 1 patch Ferrous Sulfate (Feosol) 324 mg PO DAILY [facility] Last Admin: 07/26/16 09:02 Dose: 324 mg Furosemide (Lasix) 20 mg PO DAILY [facility] Last Admin: 07/26/16 09:02 Dose: 20 mg Cefepime HCl (Maxipime 1gm) 100 mls @ 100 mls/hr IVPB Q24H [facility] PRN Reason: Protocol Last Admin: 07/26/16 11:54 Dose: 100 mls/hr Sodium Chloride (Sodium Chloride 0.9%) 1,000 mls @ 100 mls/hr IV .Q10H [facility] Last Admin: 07/27/16 05:53 Dose: 100 mls/hr Lactulose (Enulose) 20 gm PO BID [facility] Last Admin: 07/26/16 18:49 Dose: 20 gm Multivitamins (Thera Tab) 1 tab PO DAILY [facility] Last Admin: 07/26/16 09:02 Dose: 1 tab Oxycodone/Acetaminophen (Percocet 10/325 Mg Tab) 1 tab PO Q6H [facility] Last Admin: 07/27/16 12:45 Dose: Not Given Pantoprazole Sodium (Protonix Ec Tab) 40 mg PO 0630 [facility] Last Admin: 07/27/16 05:53 Dose: Not Given Potassium Chloride (Klor-Con 10) 10 meq PO DAILY [facility] Last Admin: 07/26/16 09:02 Dose: 10 meq Sennosides (Senokot Tab) 8.6 mg PO HS [facility] Last Admin: 07/26/16 21:57 Dose: 8.6 mg Sennosides (Senokot Tab) 8.6 mg PO DAILY [facility] Last Admin: 07/26/16 09:01 Dose: 8.6 mg Zinc Sulfate (Zinc Sulfate 220 Mg Cap) 220 mg PO DAILY [facility] Physical Exam - Constitutional Appears: Non-toxic, No Acute Distress, Chronically Ill - Head Exam Head Exam: ATRAUMATIC, NORMOCEPHALIC - Eye Exam Eye Exam: EOMI, PERRL Pupil Exam: NORMAL ACCOMODATION, PERRL - ENT Exam ENT Exam: Mucous Membranes Moist, Normal External Ear Exam, TM's Normal Bilaterally - Neck Exam Neck exam: Positive for: Full Rom, Normal Inspection - Respiratory Exam Respiratory Exam: Clear to Auscultation Bilateral, NORMAL BREATHING PATTERN. absent: Rales, Rhonchi, Wheezes - Cardiovascular Exam Cardiovascular Exam: REGULAR RHYTHM, RRR, +S1, +S2 - GI/Abdominal Exam GI & Abdominal Exam: Normal Bowel Sounds, Soft, Tenderness. absent: Distended Additional comments: right flank pain. - Extremities Exam Additional comments: lower body paraplegia secondary to fall in the past. - Neurological Exam Neurological exam: Alert, CN II-XII Intact, Oriented x3 - Psychiatric Exam Psychiatric exam: Normal Affect, Normal Mood - Skin Skin Exam: Intact, Normal Color Results - Vital Signs Recent Vital Signs: Last Vital Signs Temp 98.9 F 07/27/16 15:30 Pulse 60 07/27/16 10:15 Resp 20 07/27/16 10:15 BP 145/87 07/27/16 10:15 Pulse Ox 100 07/27/16 10:15 - Labs Result Diagrams: 07/27/16 08:00 07/27/16 08:00 Labs: Laboratory Results - last 24 hr 07/27/16 08:00 WBC 5.7 RBC 3.79 Hgb 10.6 L Hct 33.2 L MCV 87.6 MCH 28.0 MCHC 31.9 RDW 13.5 Plt Count 496 H MPV 8.5 Gran % 56.3 Lymph % (Auto) 27.4 [place] % (Auto) 13.5 H Eos % (Auto) 2.3 Baso % (Auto) 0.5 Gran # 3.21 Lymph # 1.6 [place] # 0.8 H Eos # 0.1 Baso # 0.03 Sodium 140 Potassium 4.1 Chloride 107 Carbon Dioxide 26 Anion Gap 11 BUN 14 Creatinine 1.1 Est GFR ( Amer) > 60 Est GFR (Non-Af Amer) 53 Random Glucose 95 Calcium 9.1 Phosphorus 3.3 Magnesium 2.0 Total Bilirubin 0.6 AST 28 ALT 7 Alkaline Phosphatase 106 Total Protein 9.1 H Albumin 3.4 Globulin 5.7 Albumin/Globulin Ratio 0.6 L Assessment & Plan - Assessment and Plan (Free Text) Assessment: 51 yo AA female with right pyelonephritis and 2cm kidney stone. The patient had stent removal today and placement of a new stent. Stone could not be extracted. Currently on Cefepime. Will give dose of Amikacin. The patient may need meropenem. Await final culture results. Patient with fevers that has persisted. UTI and pyelonephritis of the right kidney. Supportive care. Thank you for allowing me to participate in the care of the patient, we will follow with you.
[2016-07-27] MEDS ORDERED: Amikacin 500 MG in Dextrose 5% In Water 100 ML IVPB ONE (18:30)
[2016-07-28] MEDS: Oxycodone/Acetaminophen 10/325 mg Tab PO SCH ×4 (01:32→20:05)
[2016-07-28] MEDS: Sodium Chloride 0.9% 1,000 ML IV SCH (05:00)
[2016-07-28] MEDS: Pantoprazole 40 mg EC Tab PO SCH (08:04)
[2016-07-28] MEDS: Enoxaparin 30 mg Syringe SC SCH (09:28)
[2016-07-28] MEDS: Multivitamin Therapeutic Tab PO SCH ×2 (09:28→11:25)
[2016-07-28] MEDS: Potassium Chloride 10 mEq ER Tab PO SCH (09:28)
[2016-07-28] MEDS: Divalproex 125 mg EC Sprinkle Cap PO SCH ×3 (09:29→17:32)
--- NOTE | 2016-07-28 10:17 | CON ---
DATE: 07/27/2016 REASON FOR CONSULTATION: Hydronephrosis. HISTORY OF PRESENT ILLNESS: This is a very interesting lady who has significant history, both medica l and surgical and psychiatric history. Specifically, I had treated a stone, a couple years back. Then she did not come back. I had reports from the [place] [facility] that she did not want to come back f or care. When I asked her now she says that she is not sure why she did not come back. When I asked if she kn ew she had a stent in, she said yes, and I said even if she did not come to me, perhaps she could hav e gone to somebody else. She does not really have any clear answers. Meanwhile, she comes in now wi th a retained stent that has been there for about 2 or 3 years. I have to check the dates on the pau ing. Now, she is coming in with right hydronephrosis with stone disease. See the plan listed below. Again further questioning to the patient, she was aware of a stent. She was aware that I had told he r that it needed to be treated and removed. It is still not clear why she did not either come to my office, whether she lives in a [place] [facility], whether this was a transportation issue. Either way, she is here now and urology is consulted. See the addendum below, and the plan listed be low. I explained to the patient we are going to take care of her going forward (although I did expla in that a retained stent is very, very difficult, it is encrusted and at this point it is really daniel g to be very difficult to take care, but we will do our best and as quickly as efficiently as possibl e). PAST MEDICAL, SURGICAL, AND PSYCHIATRIC HISTORY: The patient is actually paraplegic. She had a "fal l" from a 3-story building (there were previous reports in the chart that this was a jump rather than a fall, meaning a suicide attempt, but this is again from previous history). There is no history of an CT or CVA. SOCIAL HISTORY: She lives in a [place] [facility] as mentioned above. Otherwise, unremarkable. MEDICATIONS: See chart. She has a pain patch noted. PHYSICAL EXAMINATION: GENERAL: Well-nourished female in no apparent distress. VITAL SIGNS: Noted. PELVIC: Deferred for now. I will mention that when I did a pelvic exam, no obvious pelvic masses. She has somewhat of a hidden urethra. No pelvic or rectal masses. LABORATORIES: See chart. CT SCAN: See chart. DIAGNOSES: Urolithiasis and a retained stent. PLAN: The patient's baseline is that she had a stone treated. I have to look through some of those records and carefully. From urology standpoint, what we are going to recommend is more aggressive treatment at this point. What we are planning on is the following: We are planning to bring the patient to the operating room today as an emergency and we are going to do a cystoscopy. I do not think we will be able to remove the stent but hopefully we will be able to get a second stent in, drain the kidney, see the other kidney response. Meanwhile, the patient will be on a lot of antibiotics and it will be a long course of treatment. We will try to do this in as minimally invasive way as possible and preserve as much kidney function as possible, and we will do this with multiple testings. So the plan for an emergency now with the patient to the operating room, antibiotics continue. We ar e going to do a cysto stent insertion at least. We may do a stent removal, depending on how encruste d it is, and then further plans will follow. Thank you for the urology consultation. ADDENDUM: Today is 07/27. See the operative report dictated the same day. We could not get the sten t out but we could get a second one and the plan now is to renal scan to see function, and repeat CT scan to see if the hydronephrosis resolved somewhat. Then further plans will follow. I have 2 stents in the lady now, one working, one not working and I explained this to the patient. After doing the procedure and speaking to the patient in the nighttime hours later I laid all this pl an out for her. She is amenable now. It is still unclear why she did not either come back to me or why she never sought care with another urologist. I explained to her now we are going to move forward. As mentioned, I need to check through my records. [place] [facility] [place] or the patient was unable to make it, or the patient did not want to come back. There were some difficulties but I had explained in great detail at that time, the necessity for get ting the stent out and complete her treatment, whether it was me or elsewhere. Rod Vasquez MD cc: [id number] TT: 07/28/2016 10:17:12 Confirmation # [id number] Dictation # [id number] jn
--- NOTE | 2016-07-28 10:37 | OP ---
PROCEDURE DATE: 07/27/2016 UROLOGY OP REPORT PREOPERATIVE DIAGNOSES: Right hydronephrosis, retained ureteral stent, urolithiasis. POSTOPERATIVE DIAGNOSES: Right hydronephrosis, retained ureteral stent, urolithiasis. PROCEDURE: Cystoscopy, attempted stent removal, right retrograde pyelogram, insertion of a second ri ght double-J stent. BLOOD LOSS: Less than 10 mL. COMPLICATIONS: There were no complications at the termination of the procedure. The patient has [address] in place. INDICATIONS: See history and physical and a consultation. A very pleasant compliant 51-year-old lady with multiple psychological psychiatric diagnostic history . She is a paraplegic. She has a history of "falling" from a 3-story building (although there are r eports from the chart from a time that this was a suicide attempt). From urology standpoint, the patient is seen in consultation. The patient knew she had a stent place d ____. Secondary to the stent that ____. 1. A encrusted stent above and below. 2. ____ at the distal tip of the stent I can see a clog. I did not even make an attempt to remove it. The patient has, what also appears to be, a decreased bladder capacity, ____ bladder for no obvious reason. ____ shows ____. The stent ____ above. We were able to insert a second double-J stent within the kidney. See the plan listed above. PROCEDURE: See the ____, see the consultation. The patient ____. ____ the patient placed on the ta ble, routine monitors placed, timeout was called. I explained to the patient my plan today was just to try to insert a stent and that this would be the beginning of several ____, and she will need much more aggressive followup. I ____to the patient, it was emphasized that even when I asked the patient ____ she was aware that shea de leon had a stent, she has never returned for care. ____ an answer from her that if even if she was not coming to me why she did not seek out other care with another urologist. There is not a clear answer. But in the meanwhile, I explained to the patient we are going to go forward and take care of her from here. I explained to the patient in detail having a stent in for so long is detrimental. She seems to be aware of this, but I told her from here, we are just going to go forward and help her as best as possible and as quickly as possible, with a little more aggressive treatment. PROCEDURE ITSELF: After obtaining informed consent, the patient was placed on the table, routine mon itors placed, timeouts were called. We confirmed the patient and positioning. [employer] film was done. There is a stent in place with encrustation on the inner portion. ____ note is the IVC filter is noted to be in place. (Although there is a report, it reports it may be beyond the boundaries of ____.) We will leave this to the radiologist and to the interventional radiologist as to the ____. Procedure continues in the following fashion: We introduced the scope via the urethra. The patient has a little bit of a peculiar anatomy below with a urethra that is a little concealed. Once we were in the bladder though, we emptied out the urine. It is pretty cloudy-appearing urine. This is sent off for analysis and culture. (The patient is on antibiotics, but we sent it anyway.) We continued, and we identified the old stent. As we identified the old stent, the distal portion I could see white encrustation within it. At this point, knowing the x-ray, knowing the length of the stent, I did not even want to try to pull the stent at all. See the plan listed below. What I did instead was I followed the stent to the ureteral orifice, and I put an open-ended ureteral catheter and a wire, and doing that technique, I ____ the wire all the w ay up to the kidney without difficulty, and then in the ____ open-ended ureteral catheter up next to it adjacent ____ with fluoroscopic imaging. Once we were up in the kidney, we took out the wire, inj ected contrast, outlined the kidney. We saw what we saw. Films were submitted to the radiologist to read. I put the wire back in. I put a second double-J stent. Emptied the bladder. The patient tolerated this all without complication. I do want to say that I h ad difficulty filling the bladder to full capacity. It did not really distend well. For no obvious reason, it sort of leaked out. The pelvic exam does not show any other abnormalities appreciable. The patient tolerated this all without complication. ADDENDUM: My plan is to try not to drive aggressive followup whether inpatient or outpatient. The n ext treatment will be the following: The next will be to obtain a followup CT scan noncontrast just to get a better assessment now that we have a second tube in to see if the hydronephrosis resolved. Perhaps even we will do a renal scan to see the function. This probably is inpatient. Then we will make arrangements to go up to [place] to a place called [facility] where it will be shockwave lithotripsy to the renal stones in the hope that this will br eak up the renal stones well enough that we will be able to remove the ureteral stent. From a below standpoint, we can probably just grasp this out without difficulty. The real issue of the kidney and the encrustation must be going on up there, but in the meantime, by putting in a double-J stent, hopefully, we have drained the kidney, and that will be the plan to foll ow this by using a renal scan and a CT scan. I explained to the patient in great detail. I also will discuss with the medical team and in terms of psychiatric evaluation as well. Rdo Vasquez MD cc: [id number] TT: 07/28/2016 10:31:09 jn 07/28/2016 09:35:44
--- NOTE | 2016-07-28 11:51 | CT ---
PROCEDURE: CT Abdomen and Pelvis without intravenous contrast HISTORY: stones/ comment on two stents and stones and hydro COMPARISON: Comparison is made to the previous study dated 07/26/2016 TECHNIQUE: Axial and reformatted coronal and sagittal CT images of the abdomen and pelvis were obtained without IV or oral contrast administration.. Contrast Dose: 0 Radiation dose: Total exam DLP = 845.72 mGy-cm. FINDINGS: LOWER THORAX: No significant interval change in the lung bases since the previous exam. Again seen is focal bronchiectasis at the left lower lobe. The heart is mildly enlarged. No evidence of significant pleural effusion. LIVER: Mild hepatomegaly is again seen. GALLBLADDER AND BILE DUCTS: Mild gallbladder wall thickening. No evidence of acute cholecystitis. PANCREAS: Unremarkable. No gross lesion or ductal dilatation. SPLEEN: Unremarkable. ADRENALS: Unremarkable. No mass. KIDNEYS AND URETERS: There are 2 ureteral stents seen extending from the right kidney collecting system to the bladder. There is 17 x 19 millimeter calculus at the right renal pelvis. There are nonobstructing right renal calculi at the mid and lower portion. Small droplet of air seen in the collecting system of the right kidney at the mid to upper pole. The right hydronephrosis has improved since the previous exam. No significant interval change in the left kidney since the previous exam. No evidence of left hydronephrosis or nephrolithiasis. Lobular heterogeneous left renal cortex is again seen. VASCULATURE: IVC filter is again seen. The abdominal aorta is normal in caliber and shape. BOWEL: Unremarkable. No obstruction. No gross mural thickening. Pwzw-ko-wxtbyubn constipation is again noted. APPENDIX: No evidence of appendicitis. PERITONEUM: Unremarkable. No free fluid. No free air. LYMPH NODES: Unremarkable. No enlarged lymph nodes. BLADDER: Mild urinary bladder wall thickening is noted. There is a small droplet of air in the bladder. REPRODUCTIVE: Unremarkable. BONES: Diffuse osteopenia is again seen. There is internal fixation and hardware at the left femur. OTHER FINDINGS: None. IMPRESSION: Interval insertion of additional (second) right ureteral stent seen at appropriate position extending from the mid to upper pole right kidney collecting system to the bladder. Interval decrease in the size of the right hydronephrosis compared to the previous study. Re- demonstration of 19 x 17 millimeter stone seen at the right renal pelvis. Re- demonstration of small nonobstructing renal calculi . No interval change in the left kidney since the previous study. Small droplet of air seen in the right kidney collecting system and in the bladder likely due to recent right ureteral stent insertion. Otherwise no interval change.
--- NOTE | 2016-07-28 11:58 | CON ---
DATE: 07/28/2016 HISTORY OF PRESENT ILLNESS: Shortly, the patient is a 51-year-old female with multi ple medical issues including paraplegia since 2007, GERD, cellulitis, anemia, history of mood disorde r. The patient was sent from [facility] for evaluation of change in mental status as well a s right flank pain. On ultrasound in the Emergency Room, there is renal calculi. It was found that the patient has pyelo nephritis. The patient needed to have surgery. The patient was placed a stent. Psych consult was called for evaluation of mood symptoms, as well as the patient is on psychotropic m edications. This typewriter mechanic attempted to speak to the patient yesterday, but the patient was in the OR. The patient was seen today. The patient presented to be alert and oriented, at times irritable, but presented well. The patient reported that she came here to the hospital for abdominal pain and back pain, and she is aware of what the findings are. The patient reported that at present moment, she f eels better. In regards to her past history, the patient was resistant to discuss what were the circ umstances of her paraplegia. All the patient said, in 2007, she fell out of the window, and since th at time, she is paraplegic. On further questioning of what happened, she said she does not remember, and she denied any substance involved back then. She denies drinking alcohol, and she did not want to discuss that. The patient said that she has been in [facility] a couple of months ago. She stayed on the psychiatric inpatient unit for observation for 24 hours, and she was sent ba to the residential. Going back to the presentation right now, the patient said that at present moment at times, her mood is depressed. At times, she gets annoyed. When asked what was the reason, the patient said that at times she does not know what is going on with her from the medical standpoint, and she had a lot of q uestions, which were not answered. This typewriter mechanic educated the patient about procedure, what was done, and what was the reason for the procedure to be done. The patient verbalized understanding, and all the patient's questions were answered. The patient was appreciative. The patient denied hearing voi diane, denied seeing things, denied paranoid ideations. The patient has some paranoid flavor towards t he residential, but not to the extent that this typewriter mechanic would be concerned. VITAL SIGNS: Stable. Temperature 98.7. Pulse is 82, blood pressure 117/71, respirations 18. Oxyge n saturation is 97. MEDICATIONS: Reviewed. The patient is on Tylenol, Elavil 25 mg at the nighttime scheduled, which wa s resumed by medical team. The patient is on Flexeril 10 mg daily. Also, Depakote 125 mg twice a da y, which was started by medical team. Cymbalta 60 mg twice a day. The rest is medical team. LABORATORY DATA: Labs reviewed. Urine was positive for urinary tract infection, E. coli positive on the urine microbiology. Report reviewed. I discussed with the medical team and attending, Dr. Burak rincon. MENTAL STATUS EXAMINATION: The patient presented to be alert and oriented x 3. The patient has fair eye contact. Speech was underproductive. Mood described, "I'm okay." Affect was constricted, but reactive, mood congruent. Thought process was coherent and goal directed. Thought content: The pat ient denied thoughts of harming herself or others, denied intent or plan. Insight and judgment are f air. Impulses are well controlled. The patient does not appear to be psychotic. IMPRESSION: Rule out mood disorder due to general medical condition. Rule out delirium stage, which is clearing. The patient has multiple medical issues including renal calculi. The patient has history of being stented 3 years back, and patient needed to have another stent place d in her kidney. The patient was ____ from yesterday. The patient also has kidney stones. The champ ent also has paraplegia, status post fall from the third floor in 2007. The patient also has history of urinary tract infection, pyelonephritis. The patient has history of mental illness. Rule out mo od disorder due to general medical condition. Rule out bipolar disorder. PLAN: Continue current management. Medications were reviewed and resumed. The patient's mental sta tus is improving. The patient was found not to be a danger to self or others. The patient denied an y side effects from the medication. The patient is on Cymbalta. The patient is on Elavil 25 mg at t he night time, and also the patient used Depakote. The patient wants to go back to the residential. The patient needs to be seen by psychiatrist back there. From the medical standpoint, the patient is improving. If the patient wants to be discharged, there is no contraindication from the psychiatr ic standpoint. The patient has future oriented plans. She wants to go for shopping. The patient said that she woul d never kill herself because she has a 25-year-old daughter. The patient has fair appetite and sleep . This typewriter mechanic will sign off from this case. The patient needs to be seen with her psychiatrist with in 1 week after discharge. All medication needs to be continued. Thank you very much for letting me participate in the care of your patient. Fatou Perez MD cc: [id number] TT: 07/28/2016 11:57:55 Confirmation # [id number] Dictation # [id number] britney
[2016-07-28] MEDS: Cefepime 1gm in NS 100ml 100 ML IVPB SCH (12:07)
[2016-07-28 12:28] LABS: ADD MANUAL DIFF? NO
[2016-07-28 12:36] LABS: BASO # 0.03 K/mm3 (0.0-2.0); BASO % 0.2 % (0.0-3.0); EOS # 0.1 (0.0-0.7); EOS % 0.7 % (1.5-5.0); GRAN # 10.58 (1.4-6.5); GRAN % 79.4 % (50.0-68.0); HEMATOCRIT 32.2 % (36.0-48.0); LYMPH # 1.6 (1.2-3.4); LYMPH % 11.9 % (22.0-35.0); MEAN CELL VOLUME 87.7 fL (80.0-105.0); MEAN CORPUSCULAR HEMOGLOBIN 28.1 pg (25.0-35.0); MEAN PLATELET VOLUME 8.3 fl (7.0-11.0); MONO % 7.8 % (1.0-6.0); PLATELET COUNT 378 10^3/uL (120.0-450.0); RED CELL DISTRIBUTION WIDTH 13.4 % (11.5-14.5); WHITE BLOOD COUNT 13.3 10^3/ul (4.5-11.0)
[2016-07-28 12:40] LABS: ALB/GLOB RATIO 0.6 (1.1-1.8); ALKALINE PHOSPHATASE 98 U/L (38-133); ALT/SGPT 13 U/L (7-56); AST/SGOT 21 U/L (15-39); BILIRUBIN,TOTAL 0.4 mg/dL (0.2-1.3); BLOOD UREA NITROGEN 12 mg/dL (7-21); CALCIUM 8.7 mg/dL (8.4-10.5); CARBON DIOXIDE 25 mmol/L (21-33); CHLORIDE 102 mmol/L (95-110); GFR AFRICAN-AMERICAN > 60; GLUCOSE,RANDOM 97 mg/dL (70-110); MAGNESIUM 1.8 mg/dL (1.7-2.2); PHOSPHOROUS 2.6 mg/dL (2.5-4.5); POTASSIUM 3.8 mmol/L (3.6-5.0); SODIUM 133 mmol/L (132-148); TOTAL PROTEIN 8.1 g/dL (5.8-8.3)
--- NOTE | 2016-07-28 15:53 | CP.PCM.PN ---
<Judson Qureshi - Last Filed: 07/28/16 16:23> Subjective - Date & Time of Evaluation Date of Evaluation: 07/28/16 Time of Evaluation: 09:52 - Subjective Subjective: Pt seen and examined. Pt reports that she is feeling better today. Pr reports that she is tolerating diet well and has a good appetite. Pt denies fever, chills, chest pain, shortness of breath, nausea, vomiting, diarrhea. Objective - Vital Signs/Intake and Output Vital Signs (last 24 hours): Temp Pulse Resp BP Pulse Ox 98.7 F 82 18 117/71 97 07/28/16 06:00 07/28/16 06:00 07/28/16 06:00 07/28/16 09:29 07/28/16 06:00 Intake and Output: 07/28/16 07/28/16 06:59 18:59 Intake Total 2640 740 Balance 2640 740 - Medications Medications: Current Medications Acetaminophen (Tylenol 325mg Tab) 650 mg PO Q4H PRN PRN Reason: Fever >100.4 F Last Admin: 07/28/16 11:13 Dose: 650 mg Amitriptyline HCl (Elavil) 25 mg PO HS [facility] Last Admin: 07/27/16 21:26 Dose: 25 mg Ascorbic Acid (Vitamin C 500 Mg Tab) 500 mg PO DAILY [facility] Last Admin: 07/28/16 09:28 Dose: 500 mg Baclofen (Lioresal) 10 mg PO Q12H [facility] Last Admin: 07/28/16 08:34 Dose: 10 mg Cyclobenzaprine HCl (Flexeril) 10 mg PO DAILY [facility] Last Admin: 07/28/16 09:29 Dose: 10 mg Divalproex Sodium (Depakote Sprinkles) 125 mg PO BID [facility] PRN Reason: Protocol Last Admin: 07/28/16 11:24 Dose: Not Given Docusate Sodium (Colace) 100 mg PO HS [facility] Last Admin: 07/27/16 21:26 Dose: 100 mg Duloxetine HCl (Cymbalta) 60 mg PO BID [facility] Last Admin: 07/28/16 09:29 Dose: 60 mg Enoxaparin Sodium (Lovenox) 30 mg SC DAILY [facility] PRN Reason: Protocol Last Admin: 07/28/16 09:28 Dose: 30 mg Fentanyl (Duragesic) 1 patch TD Q72H [facility] Last Admin: 07/26/16 09:00 Dose: 1 patch Ferrous Sulfate (Feosol) 324 mg PO DAILY [facility] Last Admin: 07/28/16 09:28 Dose: 324 mg Furosemide (Lasix) 20 mg PO DAILY [facility] Last Admin: 07/28/16 09:29 Dose: 20 mg Cefepime HCl (Maxipime 1gm) 100 mls @ 100 mls/hr IVPB Q24H [facility] PRN Reason: Protocol Last Admin: 07/28/16 12:07 Dose: 100 mls/hr Lactulose (Enulose) 20 gm PO BID [facility] Last Admin: 07/28/16 09:34 Dose: Not Given Multivitamins (Thera Tab) 1 tab PO DAILY [facility] Last Admin: 07/28/16 11:25 Dose: Not Given Oxycodone/Acetaminophen (Percocet 10/325 Mg Tab) 1 tab PO Q6H [facility] Last Admin: 07/28/16 13:32 Dose: 1 tab Pantoprazole Sodium (Protonix Ec Tab) 40 mg PO ACB [facility] Last Admin: 07/28/16 08:04 Dose: 40 mg Potassium Chloride (Klor-Con 10) 10 meq PO DAILY [facility] Last Admin: 07/28/16 09:28 Dose: 10 meq Sennosides (Senokot Tab) 8.6 mg PO HS [facility] Last Admin: 07/27/16 21:27 Dose: 8.6 mg Sennosides (Senokot Tab) 8.6 mg PO DAILY [facility] Last Admin: 07/28/16 09:28 Dose: 8.6 mg Zinc Sulfate (Zinc Sulfate 220 Mg Cap) 220 mg PO DAILY [facility] Last Admin: 07/28/16 11:26 Dose: Not Given - Labs Labs: 07/28/16 12:27 07/28/16 12:27 - Constitutional Appears: No Acute Distress - Head Exam Head Exam: ATRAUMATIC, NORMOCEPHALIC - Eye Exam Eye Exam: EOMI, PERRL - ENT Exam ENT Exam: Mucous Membranes Moist. absent: Mucous Membranes Dry - Respiratory Exam Respiratory Exam: Clear to Ausculation Bilateral. absent: Rhonchi, Wheezes - Cardiovascular Exam Cardiovascular Exam: +S1, +S2. absent: Gallop, Rubs, Murmur - GI/Abdominal Exam GI & Abdominal Exam: Soft. absent: Distended, Tenderness - Extremities Exam Extremities Exam: absent: Pedal Edema - Back Exam Additional comments: Sacral ulcer - Neurological Exam Neurological Exam: Alert, Awake, Oriented x3 - Psychiatric Exam Psychiatric exam: Normal Affect, Normal Mood - Skin Skin Exam: Normal Color, Warm Assessment and Plan - Assessment and Plan (Free Text) Assessment: Pyelonephritis and hydronephrosis secondary to nephrolithiasis: Abd/Pelvis CT - moderate to severe right hydrouteronephrosis, right perinephric and periuretic stranding; large 2 cm stone in right renal pelvis; stercoral proctitis (please see full report) CXR - no active disease Urology, Dr. Vasquez, consulted. Help appreciated Day 1 s/p cystoscopy and right ureteral stent placement with Dr. Vasquez Afebrile, nontachycardic WBC - 13.6 Urine cultures positive for E.Coli Infectious Disease, Dr. Pepper, consulted. Help appreciated. Maxipime 1 gm q24h Pt stable for discharge as per urolofy Tylenol prn for fever Percocet prn for pain NS 100 cc/hr Sacral Ulcer: Wound care consulted, help appreciated. Zinc Vitamin C Wound care recs pending Hx of Depression: Elavil 25 mg po hs Cymbalta 60 mg po bid Back pain/Muscle Spasms: Flexeril 10 mg po qd Fentanyl patch Baclofen Peripheral Edema Lasix 20 mgpo qd Anemia Feosol Prophylactic Measures: GI: protonix 40 mg po qd DVT: Lovenox 30 mg sc qd Sennosides, colace for constipation Multivitamins Lactulose <Franklin Uriostegui B - Last Filed: 07/29/16 17:23> Objective - Vital Signs/Intake and Output Vital Signs (last 24 hours): Temp Pulse Resp BP Pulse Ox 98.3 F 70 18 130/80 99 07/29/16 16:05 07/29/16 16:05 07/29/16 16:05 07/29/16 16:05 07/29/16 16:05 Intake and Output: 07/29/16 07/29/16 06:59 18:59 Intake Total 120 760 Balance 120 760 - Labs Labs: 07/29/16 11:20 07/29/16 11:20 Attending/Attestation - Attestation I have personally seen and examined this patient.: Yes I have fully participated in the care of the patient.: Yes I have reviewed all pertinent clinical information, including history, physical exam and plan: Yes Notes (Text): I have seen and examined patient at bedside with the resident. This is 51 year old [facility] female with history of paraplegia secondary to fall from 3rd story balcony, anemia, peripheral edema, sacral ulcers, kidney stone s/p ureteral stent who got admitted for evaluation of right sided flank pain and found to have acute right sided pyelonephritis and large 2cm stone. Urology consult appreciated. Patient underwent cystoscopy and right ureteral stent yesterday. Urine culture pending. Wound care consult still pending. Continue vitamin C, Zinc and multivitamins. Upon discharge patient will follow up with PMD of choice. Dr Franklin Uriostegui.
--- NOTE | 2016-07-28 17:14 | CP.PCM.PN ---
Subjective - Date & Time of Evaluation Date of Evaluation: 07/28/16 Time of Evaluation: 15:00 - Subjective Subjective: Infectious Disease Follow Up: July 28, 2016 51 yo AA female sent to [facility] for new 2cm stone in the right kidney with dilatation of the right kidney. The patient reports fevers over the past few weeks. The patient was found to have a positive urine culture. Gram negative rods growing in the urine. Patient is awake and alert. The patient was seen by Dr. Vasquez who removed the old stent (supposedly placed 3 years ago) in the right kidney and new one was placed. The patient is still having fevers and is a long time resident of [facility]. Currently on Cefepime for antibiotic coverage. E. coli in urine cultures sensitive to Cefepime. Objective - Vital Signs/Intake and Output Vital Signs (last 24 hours): Temp Pulse Resp BP Pulse Ox 98.7 F 82 18 117/71 97 07/28/16 06:00 07/28/16 06:00 07/28/16 06:00 07/28/16 09:29 07/28/16 06:00 Intake and Output: 07/28/16 07/28/16 06:59 18:59 Intake Total 2640 740 Balance 2640 740 - Medications Medications: Current Medications Acetaminophen (Tylenol 325mg Tab) 650 mg PO Q4H PRN PRN Reason: Fever >100.4 F Last Admin: 07/28/16 11:13 Dose: 650 mg Amitriptyline HCl (Elavil) 25 mg PO [facility] Last Admin: 07/27/16 21:26 Dose: 25 mg Ascorbic Acid (Vitamin C 500 Mg Tab) 500 mg PO DAILY [facility] Last Admin: 07/28/16 09:28 Dose: 500 mg Baclofen (Lioresal) 10 mg PO Q12H [facility] Last Admin: 07/28/16 08:34 Dose: 10 mg Cyclobenzaprine HCl (Flexeril) 10 mg PO DAILY [facility] Last Admin: 07/28/16 09:29 Dose: 10 mg Divalproex Sodium (Depakote Sprinkles) 125 mg PO BID [facility] PRN Reason: Protocol Last Admin: 07/28/16 11:24 Dose: Not Given Docusate Sodium (Colace) 100 mg PO [facility] Last Admin: 07/27/16 21:26 Dose: 100 mg Duloxetine HCl (Cymbalta) 60 mg PO BID [facility] Last Admin: 07/28/16 09:29 Dose: 60 mg Enoxaparin Sodium (Lovenox) 30 mg SC DAILY [facility] PRN Reason: Protocol Last Admin: 07/28/16 09:28 Dose: 30 mg Fentanyl (Duragesic) 1 patch TD Q72H [facility] Last Admin: 07/26/16 09:00 Dose: 1 patch Ferrous Sulfate (Feosol) 324 mg PO DAILY [facility] Last Admin: 07/28/16 09:28 Dose: 324 mg Furosemide (Lasix) 20 mg PO DAILY [facility] Last Admin: 07/28/16 09:29 Dose: 20 mg Cefepime HCl (Maxipime 1gm) 100 mls @ 100 mls/hr IVPB Q24H [facility] PRN Reason: Protocol Last Admin: 07/28/16 12:07 Dose: 100 mls/hr Lactulose (Enulose) 20 gm PO BID [facility] Last Admin: 07/28/16 09:34 Dose: Not Given Multivitamins (Thera Tab) 1 tab PO DAILY [facility] Last Admin: 07/28/16 11:25 Dose: Not Given Oxycodone/Acetaminophen (Percocet 10/325 Mg Tab) 1 tab PO Q6H [facility] Last Admin: 07/28/16 13:32 Dose: 1 tab Pantoprazole Sodium (Protonix Ec Tab) 40 mg PO ACB [facility] Last Admin: 07/28/16 08:04 Dose: 40 mg Potassium Chloride (Klor-Con 10) 10 meq PO DAILY [facility] Last Admin: 07/28/16 09:28 Dose: 10 meq Sennosides (Senokot Tab) 8.6 mg PO HS [facility] Last Admin: 07/27/16 21:27 Dose: 8.6 mg Sennosides (Senokot Tab) 8.6 mg PO DAILY [facility] Last Admin: 07/28/16 09:28 Dose: 8.6 mg Zinc Sulfate (Zinc Sulfate 220 Mg Cap) 220 mg PO DAILY [facility] Last Admin: 07/28/16 11:26 Dose: Not Given - Labs Labs: 07/28/16 12:27 07/28/16 12:27 - Constitutional Appears: Non-toxic, No Acute Distress, Chronically Ill - Head Exam Head Exam: ATRAUMATIC, NORMOCEPHALIC - Eye Exam Eye Exam: EOMI, PERRL Pupil Exam: NORMAL ACCOMODATION, PERRL - ENT Exam ENT Exam: Mucous Membranes Moist, Normal External Ear Exam, TM's Normal Bilaterally - Neck Exam Neck Exam: Full ROM, Normal Inspection - Respiratory Exam Respiratory Exam: Clear to Ausculation Bilateral, Rales, NORMAL BREATHING PATTERN. absent: Rhonchi, Wheezes - Cardiovascular Exam Cardiovascular Exam: REGULAR RHYTHM, RRR, +S1, +S2 - GI/Abdominal Exam GI & Abdominal Exam: Soft, Normal Bowel Sounds. absent: Distended (c), Tenderness Additional comments: right flank pain. - Extremities Exam Additional comments: lower body paraplegia secondary to fall in the past. - Neurological Exam Neurological Exam: Alert, Awake, CN II-XII Intact, Oriented x3 - Psychiatric Exam Psychiatric exam: Normal Affect, Normal Mood - Skin Skin Exam: Intact, Normal Color Assessment and Plan - Assessment and Plan (Free Text) Assessment: 51 yo AA female with right pyelonephritis and 2cm kidney stone. The patient had stent removal today and placement of a new stent. Stone could not be extracted. Currently on Cefepime. Will give dose of Amikacin. The patient may need meropenem. Await final culture results. Patient with fevers that has persisted. UTI and pyelonephritis of the right kidney. Supportive care. Afebrile today. E. coli in urine cultures. It is sensitive to Cefepime. Thank you for allowing me to participate in the care of the patient, we will follow with you.
--- NOTE | 2016-07-28 17:46 | NM ---
PROCEDURE: Renal scan, flow study HISTORY: Assess renal function. COMPARISON: July 28, 2016. Summary of findings on the comparison examination: 2 ureteral stents identified right kidney with 17 x 14 mm calculus right renal pelvis. Right hydronephrosis identified. TECHNIQUE: 10 mCi technetium 99 M Mag 3 FINDINGS: Right Kidney: Flow component: Diminished perfusion of the right kidney compared to the left. Time to peak: 22.5 minutes. Peak to T1/2 Peak: 45.5 minutes Left Kidney: Flow component: Normal flow to the left kidney Time to peak: 8.5 minutes Peak to T1/2 Peak: 22.5 minutes Split Renal Function: Right kidney 2.6% % Left kidney 97.4% % IMPRESSION: Virtual absence of renal function right kidney contributing 2.6 percent of total renal function.
[2016-07-29] MEDS: Oxycodone/Acetaminophen 10/325 mg Tab PO SCH ×2 (00:45→08:37)
[2016-07-29] MEDS: Pantoprazole 40 mg EC Tab PO SCH (08:37)
[2016-07-29] MEDS: Enoxaparin 30 mg Syringe SC SCH (09:33)
[2016-07-29] MEDS: Potassium Chloride 10 mEq ER Tab PO SCH (09:34)
[2016-07-29] MEDS: Multivitamin Therapeutic Tab PO SCH (09:36)
[2016-07-29] MEDS: Divalproex 125 mg EC Sprinkle Cap PO SCH (09:36)
[2016-07-29 11:40] LABS: ADD MANUAL DIFF? NO
[2016-07-29 11:47] LABS: BASO # 0.02 K/mm3 (0.0-2.0); BASO % 0.2 % (0.0-3.0); EOS # 0.1 (0.0-0.7); EOS % 1.3 % (1.5-5.0); GRAN # 7.58 (1.4-6.5); HEMATOCRIT 33.8 % (36.0-48.0); LYMPH # 1.5 (1.2-3.4); LYMPH % 14.7 % (22.0-35.0); MEAN CELL VOLUME 86.4 fL (80.0-105.0); MEAN CORPUSCULAR HEMOGLOBIN 28.4 pg (25.0-35.0); MEAN CORPUSCULAR HGB CONC 32.8 g/dl (31.0-37.0); MEAN PLATELET VOLUME 8.4 fl (7.0-11.0); MONO # 1.1 (0.1-0.6); MONO % 10.8 % (1.0-6.0); PLATELET COUNT 393 10^3/uL (120.0-450.0); RED CELL DISTRIBUTION WIDTH 13.4 % (11.5-14.5); WHITE BLOOD COUNT 10.4 10^3/ul (4.5-11.0)
[2016-07-29 11:52] LABS: ALB/GLOB RATIO 0.6 (1.1-1.8); ALKALINE PHOSPHATASE 106 U/L (38-133); ALT/SGPT 12 U/L (7-56); AST/SGOT 23 U/L (15-39); BILIRUBIN,TOTAL 0.4 mg/dL (0.2-1.3); BLOOD UREA NITROGEN 11 mg/dL (7-21); CALCIUM 9.1 mg/dL (8.4-10.5); CARBON DIOXIDE 27 mmol/L (21-33); CHLORIDE 105 mmol/L (95-110); GFR AFRICAN-AMERICAN > 60; GLUCOSE,RANDOM 94 mg/dL (70-110); MAGNESIUM 1.9 mg/dL (1.7-2.2); PHOSPHOROUS 2.7 mg/dL (2.5-4.5); POTASSIUM 4.2 mmol/L (3.6-5.0); SODIUM 138 mmol/L (132-148)
[2016-07-29] MEDS: Cefepime 1gm in NS 100ml 100 ML IVPB SCH (13:09)
--- NOTE | 2016-07-29 13:44 | CP.PCM.DIS ---
<TimothymckenzieJudson - Last Filed: 07/29/16 13:49> Provider - Provider Date of Admission: 07/26/16 04:00 Attending physician: Franklin Uriostegui MD Consults: Urology, Dr. Mark Vasquez Infectious Disease, Dr. Pepper Time Spent in preparation of Discharge (in minutes): 31 Hospital Course - Lab Results Lab Results: Micro Results 07/26/16 04:30 Blood-Venous Blood Culture - Preliminary NO GROWTH AFTER 3 DAYS Most Recent Lab Values WBC 10.4 10^3/ul (4.5-11.0) D 07/29/16 11:20 RBC 3.91 10^6/uL (3.5-6.1) 07/29/16 11:20 Hgb 11.1 gm/dL (12.0-16.0) L 07/29/16 11:20 Hct 33.8 % (36.0-48.0) L 07/29/16 11:20 MCV 86.4 fL (80.0-105.0) 07/29/16 11:20 MCH 28.4 pg (25.0-35.0) 07/29/16 11:20 MCHC 32.8 g/dl (31.0-37.0) 07/29/16 11:20 RDW 13.4 % (11.5-14.5) 07/29/16 11:20 Plt Count 393 10^3/uL (120.0-450.0) 07/29/16 11:20 MPV 8.4 fl (7.0-11.0) 07/29/16 11:20 Gran % 73.0 % (50.0-68.0) H 07/29/16 11:20 Lymph % (Auto) 14.7 % (22.0-35.0) L 07/29/16 11:20 [place] % (Auto) 10.8 % (1.0-6.0) H 07/29/16 11:20 Eos % (Auto) 1.3 % (1.5-5.0) L 07/29/16 11:20 Baso % (Auto) 0.2 % (0.0-3.0) 07/29/16 11:20 Gran # 7.58 (1.4-6.5) H 07/29/16 11:20 Lymph # 1.5 (1.2-3.4) 07/29/16 11:20 [place] # 1.1 (0.1-0.6) H 07/29/16 11:20 Eos # 0.1 (0.0-0.7) 07/29/16 11:20 Baso # 0.02 K/mm3 (0.0-2.0) 07/29/16 11:20 Sodium 138 mmol/L (132-148) 07/29/16 11:20 Potassium 4.2 mmol/L (3.6-5.0) 07/29/16 11:20 Chloride 105 mmol/L (95-110) 07/29/16 11:20 Carbon Dioxide 27 mmol/L (21-33) 07/29/16 11:20 Anion Gap 10 (10-20) 07/29/16 11:20 BUN 11 mg/dL (7-21) 07/29/16 11:20 Creatinine 1.1 mg/dL (0.5-1.4) 07/29/16 11:20 Est GFR ( Amer) > 60 07/29/16 11:20 Est GFR (Non-Af Amer) 53 07/29/16 11:20 Random Glucose 94 mg/dL (70-110) 07/29/16 11:20 Calcium 9.1 mg/dL (8.4-10.5) 07/29/16 11:20 Phosphorus 2.7 mg/dL (2.5-4.5) 07/29/16 11:20 Magnesium 1.9 mg/dL (1.7-2.2) 07/29/16 11:20 Total Bilirubin 0.4 mg/dL (0.2-1.3) 07/29/16 11:20 AST 23 U/L (15-39) 07/29/16 11:20 ALT 12 U/L (7-56) 07/29/16 11:20 Alkaline Phosphatase 106 U/L (38-133) 07/29/16 11:20 Total Protein 9.0 g/dL (5.8-8.3) H 07/29/16 11:20 Albumin 3.4 g/dL (3.0-4.8) 07/29/16 11:20 Globulin 5.6 gm/dL 07/29/16 11:20 Albumin/Globulin Ratio 0.6 (1.1-1.8) L 07/29/16 11:20 Urine Color Yellow (YELLOW) 07/26/16 02:20 Urine Appearance Turbid (CLEAR) 07/26/16 02:20 Urine pH 6.5 (4.7-8.0) 07/26/16 02:20 Ur Specific [place] 1.025 (1.005-1.035) 07/26/16 02:20 Urine Protein 100 mg/dL (<30 mg/dL) H 07/26/16 02:20 Urine Glucose (UA) Negative mg/dL (NEGATIVE) 07/26/16 02:20 Urine Ketones Negative mg/dL (NEGATIVE) 07/26/16 02:20 Urine Blood Large (NEGATIVE) H 07/26/16 02:20 Urine Nitrate Positive (NEGATIVE) H 07/26/16 02:20 Urine Bilirubin Negative (NEGATIVE) 07/26/16 02:20 Urine Urobilinogen 0.2 E.U./dL (<1 E.U./dL) 07/26/16 02:20 Ur Leukocyte Esterase Moderate Gio/uL (NEGATIVE) H 07/26/16 02:20 Urine RBC 1 - 3 /hpf (0-2) 07/26/16 02:20 Urine WBC 20 - 25 /hpf (0-6) 07/26/16 02:20 Ur Epithelial Cells 0 - 2 /hpf (0-5) 07/26/16 02:20 Urine Bacteria Many (NEG) 07/26/16 02:20 - Hospital Course Hospital Course: HPI: Pt is a 51 y/o F with a PMHx of paraplegia secondary to a fall from a window, hydronephrosis secondary to pyelonephritis s/p ureteral stent, GERG, anemia, cellulitis, and depression who presented to the ED with complaints of right flank pain and episodic fevers over the past month. Pt reports that [facility] and was sent to the hospital. Hospital Course: Pt presented with right flank pain. Abd/Pelvis CT revealed moderate to severe right hydrouteronephrosis, right perinephric and periuretic stranding; large 2 cm stone in right renal pelvis; stercoral proctitis (please see full report). CXR revealed no active disease (please see full report). Urology, Dr. Vasquez, was consulted. Infectious disease, Dr. Pepper, was consulted. Urine cultures were positive for E. Coli. Pt was started on antibiotics. Pt received a cystoscopy with right ureteral stent placement as performed by Dr. Vasquez. Retrograde pyelogram revealed stent was place (please see full report) . As per Dr. Vasquez, pt will need to receive lithotripsy and removal of prior stent place in thenear future. [facility]. Pt received wound care evaluation for sacral wound. Dressing was applied as per wound care nurse. Pt remained afebrile, nontachycardic with no leukocytosis. Pt clinically looked well with no complaints of flank pain and/or tenderness. Pt discharged on oral antibiotics for pyelonephritis. Discharge Exam - Head Exam Head Exam: ATRAUMATIC, NORMOCEPHALIC - Eye Exam Eye Exam: EOMI, PERRL Pupil Exam: PERRL - ENT Exam ENT Exam: Mucous Membranes Moist. absent: Mucous Membranes Dry - Neck Exam Neck exam: Full Rom - Respiratory Exam Respiratory Exam: Clear to PA & Lateral. absent: Rales, Rhonchi, Wheezes - Cardiovascular Exam Cardiovascular Exam: +S1, +S2. absent: Gallop, Rubs - GI/Abdominal Exam GI & Abdominal Exam: Soft. absent: Distended, Guarding, Rigid, Tenderness - Extremities Exam Extremities exam: full ROM - Back Exam Back exam: absent: CVA tenderness (L), CVA tenderness (R) - Neurological Exam Neurological exam: Alert, Oriented x3 - Psychiatric Exam Psychiatric exam: Normal Affect, Normal Mood - Skin Skin Exam: Normal Color, Warm Discharge Plan - Discharge Medications Prescriptions: Sulfamethoxazole/Trimethoprim [Bactrim DS 800 mg-160 mg] 1 tab PO Q12H #28 tab - Follow Up Plan Condition: FAIR Disposition: TRANSF TO SNF Instructions: Cystoscopy (DC), Urinary Tract Infection in Women (DC), Ureteral Stent Placement (DC) Additional Instructions: Please follow up with urologist, Dr. Mark Vsaquez. As per Dr. Vasquez, he will see you in at jail.Please also follow up with primary medical doctor. Please resume all home medications. Please take new prescription, Bactrim, as prescribed. Please return to the hospital is symptoms persist or new symptoms arise. Referrals: Young Vasquez MD [Staff Provider] - <Franklin Uriostegui - Last Filed: 07/30/16 12:39> Provider - Provider Date of Admission: 07/26/16 04:00 Attending physician: Franklin Uriostegui MD Hospital Course - Lab Results Lab Results: Micro Results 07/26/16 04:30 Blood-Venous Blood Culture - Preliminary NO GROWTH AFTER 3 DAYS Most Recent Lab Values WBC 10.4 10^3/ul (4.5-11.0) D 07/29/16 11:20 RBC 3.91 10^6/uL (3.5-6.1) 07/29/16 11:20 Hgb 11.1 gm/dL (12.0-16.0) L 07/29/16 11:20 Hct 33.8 % (36.0-48.0) L 07/29/16 11:20 MCV 86.4 fL (80.0-105.0) 07/29/16 11:20 MCH 28.4 pg (25.0-35.0) 07/29/16 11:20 MCHC 32.8 g/dl (31.0-37.0) 07/29/16 11:20 RDW 13.4 % (11.5-14.5) 07/29/16 11:20 Plt Count 393 10^3/uL (120.0-450.0) 07/29/16 11:20 MPV 8.4 fl (7.0-11.0) 07/29/16 11:20 Gran % 73.0 % (50.0-68.0) H 07/29/16 11:20 Lymph % (Auto) 14.7 % (22.0-35.0) L 07/29/16 11:20 [place] % (Auto) 10.8 % (1.0-6.0) H 07/29/16 11:20 Eos % (Auto) 1.3 % (1.5-5.0) L 07/29/16 11:20 Baso % (Auto) 0.2 % (0.0-3.0) 07/29/16 11:20 Gran # 7.58 (1.4-6.5) H 07/29/16 11:20 Lymph # 1.5 (1.2-3.4) 07/29/16 11:20 [place] # 1.1 (0.1-0.6) H 07/29/16 11:20 Eos # 0.1 (0.0-0.7) 07/29/16 11:20 Baso # 0.02 K/mm3 (0.0-2.0) 07/29/16 11:20 Sodium 138 mmol/L (132-148) 07/29/16 11:20 Potassium 4.2 mmol/L (3.6-5.0) 07/29/16 11:20 Chloride 105 mmol/L (95-110) 07/29/16 11:20 Carbon Dioxide 27 mmol/L (21-33) 07/29/16 11:20 Anion Gap 10 (10-20) 07/29/16 11:20 BUN 11 mg/dL (7-21) 07/29/16 11:20 Creatinine 1.1 mg/dL (0.5-1.4) 07/29/16 11:20 Est GFR ( Amer) > 60 07/29/16 11:20 Est GFR (Non-Af Amer) 53 07/29/16 11:20 Random Glucose 94 mg/dL (70-110) 07/29/16 11:20 Calcium 9.1 mg/dL (8.4-10.5) 07/29/16 11:20 Phosphorus 2.7 mg/dL (2.5-4.5) 07/29/16 11:20 Magnesium 1.9 mg/dL (1.7-2.2) 07/29/16 11:20 Total Bilirubin 0.4 mg/dL (0.2-1.3) 07/29/16 11:20 AST 23 U/L (15-39) 07/29/16 11:20 ALT 12 U/L (7-56) 07/29/16 11:20 Alkaline Phosphatase 106 U/L (38-133) 07/29/16 11:20 Total Protein 9.0 g/dL (5.8-8.3) H 07/29/16 11:20 Albumin 3.4 g/dL (3.0-4.8) 07/29/16 11:20 Globulin 5.6 gm/dL 07/29/16 11:20 Albumin/Globulin Ratio 0.6 (1.1-1.8) L 07/29/16 11:20 Urine Color Yellow (YELLOW) 07/26/16 02:20 Urine Appearance Turbid (CLEAR) 07/26/16 02:20 Urine pH 6.5 (4.7-8.0) 07/26/16 02:20 Ur Specific [place] 1.025 (1.005-1.035) 07/26/16 02:20 Urine Protein 100 mg/dL (<30 mg/dL) H 07/26/16 02:20 Urine Glucose (UA) Negative mg/dL (NEGATIVE) 07/26/16 02:20 Urine Ketones Negative mg/dL (NEGATIVE) 07/26/16 02:20 Urine Blood Large (NEGATIVE) H 07/26/16 02:20 Urine Nitrate Positive (NEGATIVE) H 07/26/16 02:20 Urine Bilirubin Negative (NEGATIVE) 07/26/16 02:20 Urine Urobilinogen 0.2 E.U./dL (<1 E.U./dL) 07/26/16 02:20 Ur Leukocyte Esterase Moderate Gio/uL (NEGATIVE) H 07/26/16 02:20 Urine RBC 1 - 3 /hpf (0-2) 07/26/16 02:20 Urine WBC 20 - 25 /hpf (0-6) 07/26/16 02:20 Ur Epithelial Cells 0 - 2 /hpf (0-5) 07/26/16 02:20 Urine Bacteria Many (NEG) 07/26/16 02:20 Attending/Attestation - Attestation I have personally seen and examined this patient.: Yes I have fully participated in the care of the patient.: Yes I have reviewed all pertinent clinical information, including history, physical exam and plan: Yes Notes (Text): I have seen and examined patient at bedside with the resident. This is 51 year old jail female with history of paraplegia secondary to fall from 3rd story balcony, anemia, peripheral edema, sacral ulcers, kidney stone s/p ureteral stent who got admitted for evaluation of right sided flank pain and found to have acute right sided pyelonephritis and large 2cm stone. Urology consult appreciated. Patient underwent cystoscopy and right ureteral stent yesterday. Urine culture revealed EColi. Discussed with Dr Pepper. Patient will be discharged on bactrim for 14 days. Wound care consult appreciated. Optifoam was recommended. Continue vitamin C, Zinc and multivitamins. Upon discharge patient will follow up with PMD of choice. Patient will also follow up with Dr Vasquez for removal of previous stent which is non working. Dr Franklin Uriostegui.
--- NOTE | 2016-07-29 15:51 | CP.PCM.PN ---
Subjective - Date & Time of Evaluation Date of Evaluation: 07/29/16 Time of Evaluation: 13:30 - Subjective Subjective: Infectious Disease Follow Up: July 29, 2016 51 yo AA female sent to [facility] for new 2cm stone in the right kidney with dilatation of the right kidney. The patient reports fevers over the past few weeks. The patient was found to have a positive urine culture. Gram negative rods growing in the urine. Patient is awake and alert. The patient was seen by Dr. Vasquez who removed the old stent (supposedly placed 3 years ago) in the right kidney and new one was placed. The patient has been afebrile for the past 48 hours and is a long time resident of [facility]. Currently on Cefepime for antibiotic coverage. E. coli in urine cultures sensitive to Cefepime. Objective - Vital Signs/Intake and Output Vital Signs (last 24 hours): Temp Pulse Resp BP Pulse Ox 98.2 F 73 20 125/63 98 07/29/16 06:00 07/29/16 06:00 07/29/16 06:00 07/29/16 09:34 07/29/16 06:00 Intake and Output: 07/29/16 07/29/16 06:59 18:59 Intake Total 120 760 Balance 120 760 - Medications Medications: Current Medications Acetaminophen (Tylenol 325mg Tab) 650 mg PO Q4H PRN PRN Reason: Fever >100.4 F Last Admin: 07/28/16 11:13 Dose: 650 mg Amitriptyline HCl (Elavil) 25 mg PO HS [facility] Last Admin: 07/28/16 21:15 Dose: 25 mg Ascorbic Acid (Vitamin C 500 Mg Tab) 500 mg PO DAILY [facility] Last Admin: 07/29/16 09:34 Dose: 500 mg Baclofen (Lioresal) 10 mg PO Q12H [facility] Last Admin: 07/29/16 08:37 Dose: 10 mg Cyclobenzaprine HCl (Flexeril) 10 mg PO DAILY [facility] Last Admin: 07/29/16 09:34 Dose: 10 mg Divalproex Sodium (Depakote Sprinkles) 125 mg PO BID [facility] PRN Reason: Protocol Last Admin: 07/29/16 09:36 Dose: Not Given Docusate Sodium (Colace) 100 mg PO [facility] Last Admin: 07/28/16 21:15 Dose: 100 mg Duloxetine HCl (Cymbalta) 60 mg PO BID [facility] Last Admin: 07/29/16 09:34 Dose: 60 mg Enoxaparin Sodium (Lovenox) 30 mg SC DAILY [facility] PRN Reason: Protocol Last Admin: 07/29/16 09:33 Dose: 30 mg Fentanyl (Duragesic) 1 patch TD Q72H [facility] Last Admin: 07/29/16 09:31 Dose: 1 patch Ferrous Sulfate (Feosol) 324 mg PO DAILY [facility] Last Admin: 07/29/16 09:36 Dose: Not Given Furosemide (Lasix) 20 mg PO DAILY [facility] Last Admin: 07/29/16 09:34 Dose: 20 mg Cefepime HCl (Maxipime 1gm) 100 mls @ 100 mls/hr IVPB Q24H [facility] PRN Reason: Protocol Last Admin: 07/29/16 13:09 Dose: 100 mls/hr Lactulose (Enulose) 20 gm PO BID [facility] Last Admin: 07/29/16 09:36 Dose: Not Given Multivitamins (Thera Tab) 1 tab PO DAILY [facility] Last Admin: 07/29/16 09:36 Dose: Not Given Oxycodone/Acetaminophen (Percocet 10/325 Mg Tab) 1 tab PO Q6H [facility] Last Admin: 07/29/16 08:37 Dose: 1 tab Pantoprazole Sodium (Protonix Ec Tab) 40 mg PO ACB [facility] Last Admin: 07/29/16 08:37 Dose: 40 mg Potassium Chloride (Klor-Con 10) 10 meq PO DAILY [facility] Last Admin: 07/29/16 09:34 Dose: 10 meq Sennosides (Senokot Tab) 8.6 mg PO HS [facility] Last Admin: 07/28/16 21:15 Dose: 8.6 mg Sennosides (Senokot Tab) 8.6 mg PO DAILY [facility] Last Admin: 07/29/16 09:34 Dose: 8.6 mg Zinc Sulfate (Zinc Sulfate 220 Mg Cap) 220 mg PO DAILY [facility] Last Admin: 07/29/16 09:36 Dose: Not Given - Labs Labs: 07/29/16 11:20 07/29/16 11:20 - Constitutional Appears: Non-toxic, No Acute Distress, Chronically Ill - Head Exam Head Exam: ATRAUMATIC, NORMOCEPHALIC - Eye Exam Eye Exam: EOMI, PERRL Pupil Exam: NORMAL ACCOMODATION, PERRL - ENT Exam ENT Exam: Mucous Membranes Moist, Normal External Ear Exam, TM's Normal Bilaterally - Neck Exam Neck Exam: Full ROM, Normal Inspection - Respiratory Exam Respiratory Exam: Clear to Ausculation Bilateral, NORMAL BREATHING PATTERN. absent: Rales, Rhonchi, Wheezes - Cardiovascular Exam Cardiovascular Exam: REGULAR RHYTHM, RRR, +S1, +S2 - GI/Abdominal Exam GI & Abdominal Exam: Soft, Normal Bowel Sounds. absent: Distended, Tenderness - Extremities Exam Extremities Exam: Full ROM, Normal Inspection - Neurological Exam Neurological Exam: Alert, Awake, CN II-XII Intact, Oriented x3 - Psychiatric Exam Psychiatric exam: Normal Affect, Normal Mood - Skin Skin Exam: Intact, Normal Color Assessment and Plan - Assessment and Plan (Free Text) Assessment: 51 yo AA female with right pyelonephritis and 2cm kidney stone. The patient had stent removal today and placement of a new stent. Stone could not be extracted. Currently on Cefepime. Will give dose of Amikacin. The patient may need meropenem. Await final culture results. Patient with fevers that has persisted. UTI and pyelonephritis of the right kidney. Supportive care. Afebrile today. E. coli in urine cultures. It is sensitive to Cefepime. Patient will need a 14 day course of antibiotics. She has been afebrile for the past 2-3 days. Thank you for allowing me to participate in the care of the patient, we will follow with you.
[2016-07-29 16:06] VITALS: BP 130/80; PULSE 70; RESP 18; TEMP 98.3; O2SAT 99
== END 2016-07-29 16:51 | DRG 689 ==
LOC: ED 23:28 → ERH 07-26 04:00 → 3RNO 07-26 05:40
PROVIDERS: ADMIT Internal Medicine; ATTEND Hospitalist
PROC: BT1D1ZZ Fluoroscopy of Right Kidney, Ureter and Bladder using Low Osmolar Contrast (ICD-10-PCS; 2016-07-27)
PROC: 0T768DZ Dilation of Right Ureter with Intraluminal Device, Via Natural or Artificial Opening Endoscopic (ICD-10-PCS; principal; 2016-07-27 09:00)
DX: N10 Acute pyelonephritis (principal); L89.154 Pressure ulcer of sacral region, stage 4; G82.20 Paraplegia, unspecified; L89.324 Pressure ulcer of left buttock, stage 4; N13.39 Other hydronephrosis; N20.0 Calculus of kidney; K21.9 Gastro-esophageal reflux disease without esophagitis; F32.9 Major depressive disorder, single episode, unspecified; B96.20 Unspecified Escherichia coli [E. coli] as the cause of diseases classified elsewhere; D64.9 Anemia, unspecified; K62.89 Other specified diseases of anus and rectum; R60.0 Localized edema; M62.838 Other muscle spasm; W13.0XXS Fall from, out of or through balcony, sequela

== ENCOUNTER 2016-08-17 06:10 | Day surgery (SDC) | payer MEDICARE, MEDICAID ==
[2016-08-16 08:50] VITALS: BMI 28.4
[2016-08-17 06:53] VITALS: O2SAT 99
[2016-08-17] MEDS ORDERED: Iohexol 240 (50 ml) ONE (08:05)
[2016-08-17] MEDS ORDERED: cefTRIAXone (Rocephin) 1 gm Inj ONE (08:05)
[2016-08-17] MEDS ORDERED: Midazolam 2 MG/2 ML VIAL ONE (08:27)
[2016-08-17] MEDS ORDERED: Propofol 10 mg/ml Inj (20 ML) ONE (08:27)
--- NOTE | 2016-08-17 10:00 | HP ---
REASON FOR ADMISSION: Treatment of kidney stones. A retained stent. HISTORY OF PRESENT ILLNESS: The patient is a very pleasant lady who is pleasant, but extremely nonco mpliant. She has many psychological issues who years ago we had put a stent in, and then for various reasons she did not come back. She happens to be paraplegic. She lives in a shelter. She did not want to come back to any urologist apparently. I have tried questioning why if she was not eddi ng back to me she did not see another urologist. It is difficult to tell. At any rate, at this point she is allowing me to take care of her and trushakira h the treatment. She has a retained stent. The last time we saw her she had right hydro. We put a second stent in, so she has 2 stents in the right side because I could not get the first one out. I began treatment with a right ESWL to the stones. In the hope that now we will be able to remove the stent. That is what she is here for today. PAST MEDICAL AND SURGICAL HISTORY: As listed above. There are no other changes. MEDICATIONS: All that is listed on the chart and there are no changes. PHYSICAL EXAMINATION: GENERAL: Well-nourished male, in no apparent distress. VITAL SIGNS: Within normal limits on the chart. LUNGS: Clear. ABDOMEN: Overall soft, nontender. No flank mass appreciated. PELVIC: I am going to get a cystoscopy but I will mention now no pelvic or rectal masses. DIAGNOSES: Urolithiasis, hematuria, hydronephrosis, and retained stent. PLAN: Gently and carefully, we are going to try to get the stent that is retained in place. We did an ESWL of that stone. I am going to try to crush the stones below, maybe even laser, to see what it takes to remove the barbara nt. I am going to try to do that while it is basically a dilated ureter. Further plans will follow. Risks, benefits discussed with the patient. I am very concerned with the patient. I did offer the patient, but I do not think it is a reasonable option, to get a second op inion and to go to a Medical Center. I did discuss percutaneous treatment. We are going to try to d o it all endoscopically with percutaneous and see how this goes. Slow gentle steps. Antibiotic prophylaxis, then cystoscopy, and then will see. Rod Vasquez MD cc: [phone] TT: 08/17/2016 09:59:30 jn
[2016-08-17 10:15] VITALS: PULSE 91; RESP 18; TEMP 98.4
[2016-08-17 10:41] VITALS: BP 122/68
--- NOTE | 2016-08-17 11:40 | OP ---
PROCEDURE DATE: 08/17/2016 PREOPERATIVE DIAGNOSES: Urolithiasis, retained stent, hematuria. POSTOPERATIVE DIAGNOSES: Urolithiasis, retained stent, hematuria. PROCEDURES: Cystoscopy, removal of 1 of the right double-J stents. COMPLICATIONS: There were no complications. BLOOD LOSS: Less than 10 mL. INDICATIONS: See history and physical for further details. A very pleasant but noncompliant lady wh o has a retained stent. She presents with hydronephrosis. Now we are removing the stent. We did an ESWL on the right side. The stent was very encrusted; we could not even move it. Now we have her h ere for removal. DESCRIPTION OF PROCEDURE: Cystoscope via the urethra. She has a kind of patulous urethra where it i s difficult even to distend her bladder. The ureteral orifices are identified. Both stents are identified. Films are ____. No definite ston e seen. The lower stent was encrusted, but able to grab it at a point where there is just a little part where I can grab it with the grasping forceps and then pulled gently, and then it was pulled right out wit hout difficulty. I did it under fluoroscopic imaging to make sure that the other stent did not move with it. At the termination of the procedure, the patient still has a double-J stent in place on the right side. There were no complications. ADDENDUM: My plan is for followup BUN and creatinine and a followup CT scan and then, as long as the re is no hydro or stones, will plan to remove the other stent. Rod Vasquez MD cc: [phone] TT: 08/17/2016 11:40:13 fl
--- NOTE | 2016-08-17 13:46 | RAD ---
PROCEDURE: Fluoroscopy up to 1 hour HISTORY: REMOVAL OF ONE STENT FROM RT SIDE COMPARISON: TECHNIQUE: Fluoroscopy up to 1 hour. Six images were submitted FINDINGS: The initial images show 2 stents in the right ureter and renal collecting system. 1 of the stents was removed IMPRESSION: As above
--- NOTE | 2016-08-17 16:47 | CARD ---
APPROVED REPORT EKG Measurement Heart [id number] <Conclusion> Normal sinus rhythm Incomplete right bundle branch block Nonspecific T wave abnormality Abnormal ECG
== END 2016-08-17 12:45 | disposition home or self-care (01) ==
LOC: SDS 06:10
PROVIDERS: ATTEND Urology
DX: T19.8XXA Foreign body in other parts of genitourinary tract, initial encounter (principal); N13.2 Hydronephrosis with renal and ureteral calculous obstruction; R31.9 Hematuria, unspecified; Z91.19 Patient's noncompliance with other medical treatment and regimen; G82.20 Paraplegia, unspecified; Y84.8 Other medical procedures as the cause of abnormal reaction of the patient, or of later complication, without mention of misadventure at the time of the procedure
CPT/HCPCS: 36415; 52310; 76000; 84703; 88300; 93005; J0696; J2001; J2250; J2704; J3010

== ENCOUNTER 2016-08-31 06:44 | Day surgery (SDC) | payer MEDICARE, MEDICAID ==
[2016-08-23 08:21] VITALS: BMI 27.3
[2016-08-31] MEDS ORDERED: Propofol 10 mg/ml Inj (20 ML) ONE (08:21)
[2016-08-31] MEDS ORDERED: cefTRIAXone (Rocephin) 1 gm Inj ONE (09:07)
[2016-08-31] MEDS ORDERED: Iohexol 240 (50 ml) ONE (09:07)
[2016-08-31] MEDS ORDERED: Lactated Ringer's 1,000 ML IV SCH (09:45)
[2016-08-31 11:47] VITALS: RESP 18; TEMP 97.5; O2SAT 97
[2016-08-31 11:50] VITALS: BP 118/60; PULSE 72
--- NOTE | 2016-08-31 14:02 | RAD ---
PROCEDURE: Retrograde pyelogram HISTORY: STENT REMOVAL COMPARISON: TECHNIQUE: Fluoroscopy was provided in the operating room. 23.2 seconds of fluoroscopy time were utilized. 9 images were submitted FINDINGS: The study shows replacement of a right ureteral stent IMPRESSION: As above
--- NOTE | 2016-09-07 11:20 | HP ---
This is a very pleasant lady who is here today for treatment of stones. A very pleasant, but extremely noncompliant lady who has a history of stones. See the previously dic tated notes, multiple procedures already. We put had put a stent in. We actually need to put a seco nd stent in. On her last trip here, we were able to get the other stent out. We had, in between, do ne a shockwave lithotripsy. In the interim, she was supposed to get a CAT scan. She is here today at least to change the stents. See the plans listed below. PAST MEDICAL AND SURGICAL HISTORY: No interim change in review of systems. SOCIAL HISTORY: Unremarkable. She stays in correction. MEDICATIONS: See chart. PHYSICAL EXAMINATION: GENERAL: Well-nourished female, in no apparent distress. VITAL SIGNS: Within normal limits. ABDOMEN: Overall soft, nontender. No flank masses. PELVIC: Deferred until cysto, but I will mention previous pelvic exam shows some kind of patulous ur ethra. No specific pelvic masses. LABORATORIES: See chart. DIAGNOSES: Urolithiasis, hematuria, intermittent pain. A very pleasant lady. She is 51 years old. PLAN: Today we are going to do cystoscopy, we will change the stent. The CT scan was just done yest hansel, but today, I just want to change the stent. If she still has leftover stones, I am going to l eave the stent in and then we will make further plans and recommendations. The plan is as follows: Antibiotic prophylaxis, cystoscopy and stent change and then further plans w ill follow. Just a reminder, previously she came in with hydronephrosis, encrusted stent that had been ther e for a few years. At that time, we did a cysto; we inserted a second stent, so she had 2 stents. Mary de leon then did a shockwave lithotripsy. That was a separate procedure, then we brought her back here. We removed the second stent and now shea de leon has a stent in. We are going to change it and then make further recommendations. ADDENDUM See the operative report, but basically we did a cysto stent exchange today. She still has some stones left over. The plan will be outpatient shock wave lithotripsy. Rod Vasquez MD cc: [phone] TT: 09/07/2016 11:20:18 an
--- NOTE | 2016-09-07 11:39 | OP ---
PROCEDURE DATE: 08/31/2016 PREOPERATIVE DIAGNOSES: Urolithiasis, hematuria, hydronephrosis, flank pain. POSTOPERATIVE DIAGNOSES: Urolithiasis, hematuria, hydronephrosis, flank pain. PROCEDURE: A cystoscopy, removal of a right double-J stent, right retrograde pyelogram, insertion of right double-J stent. COMPLICATIONS: There were none. BLOOD LOSS: Less than mL. At the termination of the procedure, patient has a double-J stent. She also still has remnant stones by my reading of the x-rays. Films are submitted for the radiologist to read as well, plus pending CAT scan. See the addendum below. See the history and physical for further details. A very pleasant, but noncompliant lady, who initia lly presented to us with a stone. We had placed a stent and then subsequently she refused to come ba ck in. The stone got encrusted. She came back in with hydronephrosis. Subsequently, we put a second stent in. After we did this, we then provided shockwave lithotripsy. We were able to remove a stent. Her last time here, we removed the stent. Today, she is here and she passed a lot of stones apparently. Again, she is very pleasant, but noncompliant all the time. Today, she is here for a cysto, retrograde, change of a stent. PROCEDURE ITSELF: After obtaining informed consent, the patient was placed on the table, routine mon itoring devices placed, timeouts were called to confirm the patient and positioning antibiotics were given. Cystoscope via the urethra. The old stent is identified. Although I do not mean the 2 of 3-year-old stent. That has already been removed. I mean the stent t hat is there for a few weeks. I removed the wire, put up to the kidney, open-ended, retrograde pyelogram is performed. It looks like there is some filling defects that are consistent with stones (see the plan listed afia lafleur). So I replaced it with a double-J stent. The patient tolerated the procedure well without complication. ADDENDUM: CT scan does confirm stones. Our plan will be outpatient shockwave lithotripsy, break up all the stones and then we will plan for a stent removal. I have explained all this to the patient in great detail. Rod Vasquez MD cc: [id number] TT: 09/07/2016 11:38:52 en
== END 2016-08-31 12:00 | disposition designated cancer center or children's hospital (05) ==
LOC: MERGE 06:44 → SDS 06:44
PROVIDERS: ATTEND Urology
DX: N13.2 Hydronephrosis with renal and ureteral calculous obstruction (principal); R31.9 Hematuria, unspecified; R10.9 Unspecified abdominal pain; Z91.19 Patient's noncompliance with other medical treatment and regimen
CPT/HCPCS: 52332; 74420; C1758; C2625; J0696; J2704; J3010; J7120 ×2; Q9966

== ENCOUNTER 2016-11-02 07:49 | Day surgery (SDC) | payer MEDICARE, OTHER ==
[2016-10-19 11:15] VITALS: BMI 31.6
[~2016-11-02 07:49] MED LIST: Iohexol 240 (50 ml) ONE; cefTRIAXone (Rocephin) 1 gm Inj ONE
[2016-11-02] MEDS ORDERED: HYDROmorphone 0.5 mg/0.5 ml ISec IVP PRN (08:21)
[2016-11-02] MEDS ORDERED: Lactated Ringer's 1,000 ML IV SCH (08:21)
[2016-11-02] MEDS ORDERED: cefTRIAXone (Rocephin) 1 gm Inj ONE (10:23)
[2016-11-02] MEDS ORDERED: Propofol 10 mg/ml Inj (20 ML) ONE (10:26)
[2016-11-02] MEDS ORDERED: Midazolam 2 MG/2 ML VIAL ONE (10:26)
[2016-11-02] MEDS ORDERED: Oxycodone/Acetaminophen 5/325 mg Tab PO PRN (11:31)
[2016-11-02 12:07] VITALS: BP 131/69; PULSE 59; RESP 20; TEMP 97.6; O2SAT 94
[2016-11-02] MEDS ORDERED: Oxycodone/Acetaminophen 5/325 mg Tab ONE (12:50)
--- NOTE | 2016-11-03 14:09 | HP ---
REASON FOR ADMISSION: Treatment of kidney stone. HISTORY OF PRESENT ILLNESS: A very pleasant lady, somewhat noncompliant, lives in a group home. S he has a big stone. We have to discuss options for treatment. Today she is coming in for stent corley ge. See previously dictated notes. We are here just changed the stent today. We discussed options including shockwave lithotripsy including percutaneous nephrostolithotomy. See the previous CT scan. The patient still has stones. We have tried multiple treatments. First she came in with an obstruct ed stone that was a retained stent. In the interim, the patient has had the stent changed. We are now down to 1 stent; we initially had 2 stents in. She is here just to change the stent and then we will discuss options. PAST MEDICAL AND SURGICAL HISTORY: Otherwise unremarkable. There are no changes. Significant histo ry: Psych history, history of trauma, and she is living in a group home. MEDICATIONS: See chart. ALLERGIES: ____. PHYSICAL EXAMINATION: GENERAL: She is a well-nourished female, in no apparent distress. VITAL SIGNS: Noted. PELVIC: Deferred until the time of the cysto, but I will mention now she has a very patulous urethra . She is very incontinent and the urethra is extremely wide open. No other pelvic masses are noted. DIAGNOSES: Urolithiasis, urinary incontinence, voiding dysfunction. PLAN: Today we are going to remove the stent and insert a new one. I have been discussing. She wan ts, if we can, to treat her stone but she for now has refused percutaneous treatment. We have to dis cuss options. It is a fairly large stone but it is possible to be treated with ureteroscopes. Today we are just changing her stent. Also, the other thing is that sometimes she is not able to make all the appointment. We are trying to encourage her to be able to do better. So the plan is as follows : Today we are going to change the stent, antibiotic prophylaxis, and then further plans will follow . Risks and benefits were discussed at length. Rod Vasquez MD cc: [id number] TT: 11/03/2016 14:09:00 mn
--- NOTE | 2016-11-03 14:18 | OP ---
PROCEDURE DATE: 11/02/2016 PREOPERATIVE DIAGNOSES: Urolithiasis, hematuria, hydronephrosis, flank pain, intermittent pain, recu rrent infections and incontinence. POSTOPERATIVE DIAGNOSES: Urolithiasis, hematuria, hydronephrosis, flank pain, intermittent pain, rec urrent infections, incontinence, and persistent stone. PROCEDURES: Examination under anesthesia, cystoscopy, removal of a right double-J stent, right retro grade pyelogram, insertion of right double-J stent. COMPLICATIONS: There were no complications. BLOOD LOSS: Less than 10 mL. At termination of the procedure, the patient has a double-J stent with the stones. INDICATIONS: See history and physical for further details. This is a very pleasant, somewhat noncom pliant lady, here for the above testing. After discussing everything, she is here just to change the stent. We discussed options including percutaneous treatment including ureteroscopy, laser lithotripsy, but for today we are just changing the stent. PROCEDURE: After obtaining informed consent, the patient was placed on the table. ____ noted. Cystoscope via the urethra. We identified the old stent. I do want to remark that the stent is very encrusted already. The other thing that is remarkable is her urethra is just a patulous urethra. Very difficult to keep urine in her bladder, even while I am filling up the scope. We removed the old stent without difficulty, put a new stent. In fact, I cannot put a wire through t he stent it is so encrusted. But under direct vision, put an open-ended ureteral next to it, inject contrast, confirmed our positi oning. Once we did this, we can remove the old one, put a wire through the open-ended and then we pu t a double-J stent. The patient tolerated the procedure without complication. ADDENDUM: I would like to treat her stone further depending on whether the patient will allow. But it depends a little bit on the patient. Rod Vasquez MD cc: [id number] TT: 11/03/2016 14:17:28 vt
--- NOTE | 2016-11-05 13:47 | RAD ---
PROCEDURE: Fluoroscopy up to 1 hour HISTORY: CYSTO / RETROGRADE / STENT REMOVAL/INSERTION (RIGHT) COMPARISON: TECHNIQUE: Fluoroscopy was provided in the operating room. 47 seconds of fluoroscopy time were utilized. Eight images were submitted FINDINGS: The study shows replacement of a right-sided ureteral stent. Procedure was performed by Dr. Rod Vasquez IMPRESSION: As above
== END 2016-11-02 13:20 ==
LOC: SDS 07:49
PROVIDERS: ATTEND Urology
DX: N13.2 Hydronephrosis with renal and ureteral calculous obstruction (principal); R31.9 Hematuria, unspecified; Z91.19 Patient's noncompliance with other medical treatment and regimen
CPT/HCPCS: 52332; C1758; C1769; C2625; J0696; J1100; J1170; J2001; J2250; J2405; J2704; J3010; J7120 ×2; Q9966

== ENCOUNTER 2017-02-08 06:01 | Day surgery (SDC) | payer MEDICARE ==
[2017-01-30 09:11] VITALS: BMI 30.7
[2017-02-08] MEDS ORDERED: Propofol 10 mg/ml Inj (20 ML) ONE (07:25)
[2017-02-08] MEDS ORDERED: Albuterol HFA 90 mcg/actuation (8 g) ONE (08:31)
[2017-02-08] MEDS ORDERED: Sevoflurane - Inhalation Anesthetic Liq (250 ml) ONE (08:31)
[2017-02-08] MEDS ORDERED: Midazolam 2 MG/2 ML VIAL ONE (08:48)
[2017-02-08] MEDS ORDERED: Iohexol 240 (50 ml) ONE (08:51)
[2017-02-08] MEDS ORDERED: Oxycodone/Acetaminophen 5/325 mg Tab PO PRN (08:53)
[2017-02-08] MEDS ORDERED: cefTRIAXone (Rocephin) 1 gm Inj ONE (09:02)
[2017-02-08] MEDS ORDERED: HYDROmorphone 0.5 mg/0.5 ml ISec IVP PRN (09:30)
[2017-02-08] MEDS ORDERED: Lactated Ringer's 1,000 ML IV SCH (09:30)
[2017-02-08 10:13] VITALS: O2SAT 99
--- NOTE | 2017-02-08 10:19 | RAD ---
PROCEDURE: RETROGRADE PYELOGRAPHY HISTORY: STENT REMOVAL COMPARISON: Prior retrograde pyelography from 08/31/2016. TECHNIQUE: Intraoperative fluoroscopy was provided to the referring physician to perform retrograde pyelography. FINDINGS: Image filling defects are identified scattered throughout the upper mid lower pole right renal calices and possibly the right renal pelvis as well. Prior right ureteral stent is been removed. IMPRESSION: As above.
[2017-02-08 10:31] VITALS: PULSE 72; RESP 18; TEMP 97.4
[2017-02-08 11:57] VITALS: BP 104/59
--- NOTE | 2017-02-08 17:59 | HP ---
UROLOGY ADMISSION HISTORY AND PHYSICAL REASON FOR ADMISSION: Treatment of stones. HISTORY OF PRESENT ILLNESS: A very pleasant lady, extremely noncompliant, but very pleasant about the whole matter, 51 years' old, has history of trauma. She is paraplegic. She had fallen from a window. The exact details are in previous notes. From urology standpoint, she has a tremendous stone burden, although we have tried treating her. At this point, I think, she may even be stone free. So, we are bringing her in for a cysto, retrograde, and a possible stent removal. She had a tremendous initial stone burden. We are trying to at least get the stent out for a bit because it is tough and difficult to get her back in. In the interim, she has had a stent in. She has had previously as well. She has had ureteroscopy. She has had multiple treatments. PAST MEDICAL AND SURGICAL HISTORY: As listed on the chart, otherwise unremarkable from urology standpoint. She is medically cleared for this. See the history and physical from her medical doctor that is on the chart that I signed. MEDICATIONS: All listed. ALLERGIES: NONE. PHYSICAL EXAMINATION: GENERAL: A well-nourished female, in no apparent distress. She is currently resting comfortably. VITAL SIGNS: Within normal limits as listed in the chart. ABDOMEN: Relatively soft. No real CVA tenderness. PELVIC: mentioned that she has patulous urethra. There are no pelvic or rectal masses. DIAGNOSES: Urolithiasis, hematuria, heavy stone burden. PLAN: Today, we are going to do a cysto, removal of the stent. We are going to try to get the stent out completely with a retrograde just to assess the area and then further plans will follow. So antibiotics, cysto, stent removal, retrograde pyelogram, and then further plans will follow depending on what we find clinically. ADDENDUM: We did a retrograde. The stone burden seems to be tremendously less than previously noted. There are areas in the kidney that do not fill out well. I do not know if these are stones, that is not easily visible on the plain x-ray, whether this is some kind of other debris or air or the like, but either way, see the operative report. We took out the stent completely. We will plan for imaging with a CAT scan in about a month just to see what we are up to. There are many conditions that may be mimicking this situation, need to make sure that there is no filling defect, no cancer, debris, stones, fungus anything, there is a long differential list. We will just follow the patient closely at this point. The patient is under the care of multiple doctors including whoever is following in the longterm, potentially Dr. Helton, make sure that he is also aware. Previously, she was seen by Dr. Wasserman, so we will make sure that this is appropriate. For today, we took the stent out, see the operative report. Rod Vasquez MD
--- NOTE | 2017-02-09 06:07 | OP ---
PROCEDURE DATE: 02/08/2017 UROLOGY OPERATIVE REPORT PREOPERATIVE DIAGNOSES: Urolithiasis, hematuria, right hydronephrosis, heavy stone burden on the kidney. POSTOPERATIVE DIAGNOSES: Urolithiasis, hematuria, right hydronephrosis, heavy stone burden on the kidney. PROCEDURES PERFORMED: Examination under anesthesia, cystoscopy, removal of a right double-J stent, right retrograde pyelogram. At the termination of the procedure, we left no stents in the patient. See the findings below. ESTIMATED BLOOD: Less than 10 mL. FINDINGS: There is definitely abnormal filling in the kidney, hydro, but I do not see any definite 100% stones. I get these filling areas and even on the audio visual facilities engineer films, they certainly are skeptical. There are some areas that are concerning for stones. Definitely, the major stones that we had seen before are somewhat less at least, but either way after discussing options with the patient and also , we decided at least to give the kidney a holiday from the stent, so we removed the stent completely and our plan, see below, will be to get a followup CT scan to see where we are up to. DESCRIPTION OF PROCEDURE: After obtaining informed consent, the patient was placed on the table. Routine monitor was placed. Time-out was called to confirm the patient. I discussed the patient all plans, recommendations and considerations. So after we did all preparation, the patient was brought to the OR, placed on table. Time-out was called to confirm the patient. The patient was given antibiotic prophylaxis. Cystoscope via urethra. We identified the stent. We removed it. There was a lot of debris in the bladder. I do want to mention also she has a patulous urethra. We pulled up the stent. The stent was very encrusted to the point I could not put a wire inside, cut the stent, and the distal end, and then I put a wire through, and then it slit up nicely and easily. We did the whole thing with fluoroscopy. Now, we went up to the kidney and we put an open-ended catheter. We confirmed our positioning. We did a contrast imaging. There was a hydro noted. There was a filling defect noted. All these things are noted. Films were submitted to the radiologist to review, but either way, I do not see any thing obstructing the ureter. There was even though a little filling defect, but eventually fills in the just around the renal pelvic area, but either way nothing drastic. I discussed the options with the patient. So at this point, I took out everything, the wire, open-ended, no stents were left. The patient tolerated the procedure without complications. ADDENDUM: We will see how the patient does clinically. We are going try to give her a little holiday from the stent. Then, we will get a CT scan to re-image and see after all the treatment she has been through, if we have truly progressed in terms of making the patient stone free. the patient multiple times is stones free. We will have to see how she does. We will of course notify her medical doctor for further plan and the long term as well. Rod Vasquez MD
== END 2017-02-08 13:00 ==
LOC: SDS 06:01
PROVIDERS: ATTEND Urology
DX: N13.2 Hydronephrosis with renal and ureteral calculous obstruction (principal); R31.9 Hematuria, unspecified; Z91.19 Patient's noncompliance with other medical treatment and regimen; G82.20 Paraplegia, unspecified
CPT/HCPCS: 36415; 52005; 74420; 84702; 88300; C1758 ×2; C1769; J0131; J0696; J1170; J2001; J2250; J2405; J2704; J2765; J3010; J7120; Q9966

== ENCOUNTER 2018-05-28 13:53 | Outpatient (CLI) | payer MEDICARE, MEDICAID | END 2018-05-28 13:54 | disposition home or self-care (01) | LOC: RAD 13:53 | DX: N10 Acute pyelonephritis (principal) ==